=== PATIENT | female | born 1995 | race Caucasian/White ===

== ENCOUNTER → 2017-07-28 | Outpatient (CLI) | payer OTHER ==
[~2017-07-28] MED LIST: B-COCAP2 PO; CNC/36 PO; METH10TA4 PO
--- NOTE | 2017-07-28 15:05 | DIAGNOSTIC IMAGING REPORT ---
LEFT LOWER EXTREMITY VENOUS DOPPLER HISTORY: PAIN IN LOWER LEFT LEG COMPARISON STUDY: None. FINDINGS: There is normal compressibility, flow, and augmentation within the left lower extremity deep venous system. IMPRESSION: No DVT within the left lower extremity. Electronically signed by: Simón Pina M.D. 07/28/2017 3:04 PM Dictated Date/Time: 07/28/2017 3:04 PM
== END | disposition home or self-care (01) ==
LOC: C.ULTRBC 14:34
PROVIDERS: ATTEND Family Medicine
DX: M79.605 Pain in left leg (principal)

== ENCOUNTER 2017-09-11 20:20 | Emergency (ER) | payer OTHER ==
[~2017-09-11] VITALS: Ht 170.2 cm; Wt 87.0 kg
[~2017-09-11 20:20] MED LIST changes: -METH10TA4 PO
[2017-09-11 20:22] VITALS: TEMP 36.7; Ht 170.2 cm; Wt 87.0 kg
[2017-09-11] MEDS ORDERED: KETOROLAC TROMETHAMINE 30 MG/ML VIAL IV STA (20:28)
[2017-09-11] MEDS ORDERED: SODIUM CHLORIDE 0.9% 1000ML 1,000 ML IV STA (20:28)
[2017-09-11] MEDS ORDERED: HYDROmorphone INJ 1 MG/ML SYR IV STA ×2 (20:28→21:07)
[2017-09-11] MEDS ORDERED: ONDANSETRON INJ 2 MG/ML 2 ML VIAL IV STA (20:28)
[2017-09-11] MEDS ORDERED: LORAZEPAM 1 MG TAB SL STA (20:31)
--- NOTE | 2017-09-11 20:37 | EMERGENCY ROOM VISIT NOTE ---
History Report prepared by Kaity: Lj Alegre Under the Supervision of: Dr. Aaron Mock M.D. First contact with patient: 20:27 Chief Complaint: KIDNEY STONE Stated Complaint: POSSIBLE KIDNEY STONE History of Present Illness The patient is a 22 year old female who presents to the Emergency Room with complaints of severe and worsening flank pain that she first experienced on Friday, 3 days ago. The patient describes the pain as a "spasm." She did visit with her PCP who said it was a muscle strain and placed her on Prednisone. Source of History: patient Onset: 3 days COP Position: back (flank) Symptom Intensity: severe Quality: other (Spasm) Timing: worsening Review of Systems See HPI for pertinent positives & negatives. A total of 10 systems reviewed and were otherwise negative. Past Medical & Surgical Medical Problems: (1) Autoimmune disease Family History FH: pulmonary embolism Social History Smoking Status: Never Smoker Marital Status: single Housing Status: lives with roommate Occupation Status: [employer] student Current/Historical Medications Scheduled Levofloxacin (Levaquin), 750 MG PO DAILY Lidocaine (Lidocaine), 5 % TD DAILY Methylphenidate (Ritalin), 10 MG PO DAILY Methylphenidate Hcl (Concerta), 36 MG PO DAILY Multivitamin (Multivitamin), 1 TAB PO DAILY Scheduled PRN Oxycodone/Acetaminophen 5MG/325MG (Percocet 5MG/325MG), 1-2 TAB PO Q4H PRN for Pain Allergies Coded Allergies: No Known Allergies (Unverified , 09/11/17) Physical Exam Vital Signs Date Time Temp Pulse Resp B/P (MAP) Pulse Ox O2 Delivery O2 Flow Rate FiO2 09/11/17 23:03 105 20 133/75 98 Room Air 09/11/17 21:47 93 09/11/17 21:40 96 18 127/77 98 Room Air 09/11/17 20:22 36.7 107 18 133/72 95 Room Air Physical Exam GENERAL: Awake, alert, crying on exam, in no acute distress HENT: Normocephalic, atraumatic. Oropharynx unremarkable. EYES: Normal conjunctiva. Sclera non-icteric. NECK: Supple. No nuchal rigidity. FROM. No JVD. RESPIRATORY: Clear to auscultation. CARDIAC: Regular rate, normal rhythm. Extremities warm and well perfused. Pulses equal. ABDOMEN: Soft, non-distended. No tenderness to palpation. No rebound or guarding. No masses. RECTAL: Deferred. MUSCULOSKELETAL: Chest examination reveals no tenderness. The back is symmetrical on inspection without obvious abnormality. There is no CVA tenderness to palpation. No joint edema. There is extreme pain in the left lower back. LOWER EXTREMITIES: Calves are equal size bilaterally and non-tender. No edema. No discoloration. NEURO: Normal sensorium. No sensory or motor deficits noted. SKIN: No rash or jaundice noted. Medical Decision & Procedures ER Provider Diagnostic Interpretation: ABD/PELVIS WITHOUT FOR STONE HISTORY: 22 years-old Female Pt c/o left sided flank pain acute left-sided flank pain COMPARISON: CTA chest 08/27/2015 TECHNIQUE: Multiple axial CT images of the abdomen and pelvis were obtained without the use of IV contrast. A dose lowering technique was used consistent with the principals of KEVIN. FINDINGS: Trace left pleural effusion with subsegmental groundglass and consolidative left basilar opacities. There is no pneumatosis or pneumoperitoneum identified. The imaged inferior cardiac chambers are unremarkable. Evaluation of the solid abdominal organs is limited without the use of IV contrast. Within the limitations of the study, the liver, spleen, pancreas, gallbladder and adrenal glands are within normal limits. Increased attenuation of the medullary pyramids noted bilaterally without renal calculi or obstructive uropathy. The ureters and urinary bladder are within normal limits. Uterus and adnexa are within normal limits. There is trace free pelvic fluid. Phleboliths are noted within the pelvis. Aorta is normal in course and caliber. No bulky adenopathy. No bowel obstruction or focal bowel wall thickening. Nondistention involves the majority of the descending colon. The appendix appears normal. Nonspecific mildly prominent lymph nodes of the right lower quadrant mesentery. Soft tissues are unremarkable. The bones appear intact. Intervertebral disc space narrowing at L5-S1 with Schmorl's node. IMPRESSION: 1. Trace left pleural effusion with subsegmental groundglass and consolidative opacities of the left lung base suspicious for pneumonitis. 2. No renal calculi or obstructive uropathy. 3. Increased attenuation of the bilateral medullary pyramids suggests hemoconcentration with dehydration or medullary nephrocalcinosis. 4. Normal appendix. The above report was generated using voice recognition software. It may contain grammatical, syntax or spelling errors. Electronically signed by: Hector Nunez M.D. 09/11/2017 10:02 PM Dictated Date/Time: 09/11/2017 9:53 PM (CHEST FOR PE) ANGIO WITH CT DOSE: 236.24 mGy.cm HISTORY: 22 years-old Female with presents with acute atypical chest pain. TECHNIQUE: Multiple CTA images of the chest were obtained after the intravenous administration of 115 ml Optiray 320. Coronal and sagittal MIPS were obtained from the axial data set and were submitted for review. A dose lowering technique was utilized adhering to the principles of ALARA. COMPARISON: CTA of the chest 08/27/2015, CT abdomen and pelvis 09/11/2017 FINDINGS: CTA: Heart is normal in size without pericardial effusion. Thoracic aorta is normal in both course and caliber without aneurysm or dissection. The imaged great vessels appear to be patent. The pulmonary arterial tree is opacified to the lobar segments with the segmental and subsegmental branches not well opacified secondary to contrast bolus timing. No central pulmonary identified. The imaged IVC is unremarkable. CT CHEST: Thyroid is homogeneous. No pathologic adenopathy of the chest. Residual thymic tissue anterior mediastinum. Breast tissue appears unremarkable. Trace left pleural effusion redemonstrated. No right pleural effusion or pneumothorax. Subsegmental groundglass and consolidative opacities are noted within the left lung base. The right lung is clear. The central airways are patent. No acute abnormality of the imaged upper abdomen. Soft tissues are within normal limits. The bones appear intact. IMPRESSION: 1. Limited evaluation of the pulmonary arterial tree secondary to contrast bolus timing. No central pulmonary embolus identified. 2. Trace left pleural effusion with subsegmental consolidative and groundglass opacities of the left lung base suggesting pneumonitis. The above report was generated using voice recognition software. It may contain grammatical, syntax or spelling errors. Electronically signed by: Hector Nunez M.D. 09/11/2017 10:46 PM Dictated Date/Time: 09/11/2017 10:40 PM The status of this report is Signed. Draft = Not yet reviewed or approved by Radiologist. Signed = Reviewed and approved by Radiologist. <AttendingPhy></AttendingPhy> <FamilyPhy>Paola Rendon M.D.</FamilyPhy> < PrimaryPhy>Paola Rendon M.D.</PrimaryPhy> <UnitNumber>[id number]</ UnitNumber> <VisitNumber>[id number]</VisitNumber> <PatientName>MADELAINE DUQUE</ PatientName> <DateOfBirth>1995</DateOfBirth> <Location>[facility]</Location> < ServiceDate>09/11/17</ServiceDate> <MNE>ESINDI</MNE> <OrderingPhy>Aaron Mock MD</OrderingPhy Laboratory Results 09/11/17 20:45 Red Blood Count 4.03, Mean Corpuscular Volume 88.3, Mean Corpuscular Hemoglobin 31.3, Mean Corpuscular Hemoglobin Concent 35.4, Mean Platelet Volume 9.9, Neutrophils (%) (Auto) 85.0, Lymphocytes (%) (Auto) 9.0, Monocytes (%) (Auto) 5.8, Eosinophils (%) (Auto) 0.0, Basophils (%) (Auto) 0.0, Neutrophils # (Auto) 8.34, Lymphocytes # (Auto) 0.88, Monocytes # (Auto) 0.57, Eosinophils # (Auto) 0.00, Basophils # (Auto) 0.00 09/11/17 20:45 Test 09/11/17 20:45 09/11/17 23:00 White Blood Count 9.81 K/uL (4.8-10.8) Red Blood Count 4.03 M/uL (4.2-5.4) Hemoglobin 12.6 g/dL (12.0-16.0) Hematocrit 35.6 % (37-47) Mean Corpuscular Volume 88.3 fL (80-100) Mean Corpuscular Hemoglobin 31.3 pg (25-34) Mean Corpuscular Hemoglobin Concent 35.4 g/dl (32-36) Platelet Count 220 K/uL (130-400) Mean Platelet Volume 9.9 fL (7.4-10.4) Neutrophils (%) (Auto) 85.0 % Lymphocytes (%) (Auto) 9.0 % Monocytes (%) (Auto) 5.8 % Eosinophils (%) (Auto) 0.0 % Basophils (%) (Auto) 0.0 % Neutrophils # (Auto) 8.34 K/uL (1.4-6.5) Lymphocytes # (Auto) 0.88 K/uL (1.2-3.4) Monocytes # (Auto) 0.57 K/uL (0.11-0.59) Eosinophils # (Auto) 0.00 K/uL (0-0.5) Basophils # (Auto) 0.00 K/uL (0-0.2) RDW Standard Deviation 42.3 fL (36.4-46.3) RDW Coefficient of Variation 13.2 % (11.5-14.5) Immature Granulocyte % (Auto) 0.2 % Immature Granulocyte # (Auto) 0.02 K/uL (0.00-0.02) Anion Gap 8.0 mmol/L (3-11) Est Creatinine Clear Calc Drug Dose 153.8 ml/min Estimated GFR () 146.1 Estimated GFR (Non- 126.0 BUN/Creatinine Ratio 21.1 (10-20) Calcium Level 8.6 mg/dl (8.5-10.1) Total Bilirubin 0.5 mg/dl (0.2-1) Direct Bilirubin 0.2 mg/dl (0-0.2) Aspartate Amino Transf (AST/SGOT) 9 U/L (15-37) Alanine Aminotransferase (ALT/SGPT) 21 U/L (12-78) Alkaline Phosphatase 65 U/L (45-117) Total Protein 8.0 gm/dl (6.4-8.2) Albumin 3.7 gm/dl (3.4-5.0) Lipase 55 U/L (73-393) Labs reviewed by ED physician. Medications Administered Medications (Trade) Dose Ordered Sig/Ragini Route Start Time Stop Time Status Last Admin Dose Admin Hydromorphone HCl (Dilaudid Inj) 1 mg NOW STAT IV 09/11/17 20:28 09/11/17 20:30 DC 09/11/17 20:49 1 MG Ketorolac Tromethamine (Toradol Inj) 30 mg NOW STAT IV 09/11/17 20:28 09/11/17 20:30 DC 09/11/17 20:50 30 MG Ondansetron HCl (Zofran Inj) 4 mg NOW STAT IV 09/11/17 20:28 09/11/17 20:30 DC 09/11/17 20:49 4 MG Sodium Chloride 1,000 ml @ 999 mls/hr Q1H1M STAT IV 09/11/17 20:28 09/11/17 21:28 DC 09/11/17 20:49 999 MLS/HR Lorazepam (Ativan Tab) 1 mg NOW STAT SL 09/11/17 20:31 09/11/17 20:32 DC 09/11/17 20:40 1 MG Hydromorphone HCl (Dilaudid Inj) 1 mg NOW STAT IV 09/11/17 21:07 09/11/17 21:08 DC 09/11/17 21:27 1 MG Metoclopramide HCl (Reglan Inj) 10 mg NOW STAT IV 09/11/17 22:04 09/11/17 22:05 DC 09/11/17 22:14 10 MG ED Course 2025: Past medical records reviewed. The patient was evaluated in room C2B. A complete history and physical examination was performed. 2027: Ordered Sodium Chloride 1000 mL @ 999 mL/hr IV, Zofran 4 mg IV, Toradol 30 mg IV, Dilaudid 1 mg IV. 2030: Ordered Ativan 1 mg SL. 2106: Ordered Dilaudid 1 mg IV. 2203: Ordered Reglan 10 mg IV. Medical Decision Differential diagnosis: Etiologies such as musculoskeletal, disc herniation, fracture, aortic disease, metastatic disease, cord compression, discitis, infection, renal colic, gastrointestinal, acute exacerbation of chronic back pain, sciatica, cauda equina, as well as others were entertained. This is a 22-year-old that is complaining of left-sided flank pain. The patient was seen by [facility] and felt to have muscle skeletal pain. She had been started on a prednisone taper. Upon arrival to the emergency department patient is acutely uncomfortable and rocking back and forth in pain. Due to her presentation she was sent for a CAT scan of the abdomen and pelvis overconcern of a stone. This did not show any evidence of stone however the patient does have a left pleural effusion. For this reason she was sent for a CAT scan of the chest. This did not show any evidence of a PE. I will place the patient on Levaquin for pneumonitis. She was given Dilaudid for the pain 2 as well as Toradol. Recommended taking ibuprofen as well as a Lidoderm patch and Percocet for the pain. Patient will return if her symptoms worsen. Patient was in agreement with the treatment plan. Medication Reconcilliation Current Medication List: was personally reviewed by me Blood Pressure Screening Patient's blood pressure: Normal blood pressure Impression Primary Impression: Left flank pain Scribe Attestation The scribe's documentation has been prepared under my direction and personally reviewed by me in its entirety. I confirm that the note above accurately reflects all work, treatment, procedures, and medical decision making performed by me. Departure Information Dispostion Home / Self-Care Prescriptions Levofloxacin (Levaquin) 750 Mg Tab 750 MG PO DAILY for 4 Days, #4 TAB Prov: Aaron Mock MD 09/11/17 Oxycodone/Acetaminophen 5MG/325MG (PERCOCET 5MG/325MG) Tab 1-2 TAB PO Q4H Y for Pain, #14 TAB Prov: Aaron Mock MD 09/11/17 Lidocaine (Lidocaine) 1 Patch Tdsy 5 % TD DAILY, #30 PATCH Prov: Aaron Mock MD 09/11/17 Referrals No Doctor, Assigned (PCP) Patient Instructions My [facility]
[2017-09-11 21:02] LABS: HEMATOCRIT 35.6 % (37-47); HEMOGLOBIN 12.6 g/dL (12.0-16.0); IG# 0.02 K/uL (0.00-0.02); LYMPH ABS # 0.88 K/uL (1.2-3.4); MEAN CELL VOLUME 88.3 fL (80-100); MEAN CORPUSCULAR HEMOGLOBIN 31.3 pg (25-34); MEAN CORPUSCULAR HGB CONC 35.4 g/dl (32-36); MEAN PLATELET VOLUME 9.9 fL (7.4-10.4); MONO % 5.8 %; MONO ABS # 0.57 K/uL (0.11-0.59); NEUT ABS # 8.34 K/uL (1.4-6.5); PLATELET COUNT 220 K/uL (130-400); RED CELL DISTRIBUTION WIDTH CV 13.2 % (11.5-14.5); RED CELL DISTRIBUTION WIDTH SD 42.3 fL (36.4-46.3); WHITE BLOOD COUNT 9.81 K/uL (4.8-10.8)
[2017-09-11 21:25] LABS: ALBUMIN 3.7 gm/dl (3.4-5.0); CALCIUM 8.6 mg/dl (8.5-10.1); CREATININE 0.65 mg/dl (0.60-1.20); POTASSIUM 3.5 mmol/L (3.5-5.1)
[2017-09-11] MEDS ORDERED: METOCLOPRAMIDE HCL INJ 5 MG/ML 2 ML VIAL IV STA (22:04)
--- NOTE | 2017-09-11 22:04 | DIAGNOSTIC IMAGING REPORT ---
ABD/PELVIS WITHOUT FOR STONE HISTORY: 22 years-old Female Pt c/o left sided flank pain acute left-sided flank pain COMPARISON: CTA chest 08/27/2015 TECHNIQUE: Multiple axial CT images of the abdomen and pelvis were obtained without the use of IV contrast. A dose lowering technique was used consistent with the principals of KEVIN. FINDINGS: Trace left pleural effusion with subsegmental groundglass and consolidative left basilar opacities. There is no pneumatosis or pneumoperitoneum identified. The imaged inferior cardiac chambers are unremarkable. Evaluation of the solid abdominal organs is limited without the use of IV contrast. Within the limitations of the study, the liver, spleen, pancreas, gallbladder and adrenal glands are within normal limits. Increased attenuation of the medullary pyramids noted bilaterally without renal calculi or obstructive uropathy. The ureters and urinary bladder are within normal limits. Uterus and adnexa are within normal limits. There is trace free pelvic fluid. Phleboliths are noted within the pelvis. Aorta is normal in course and caliber. No bulky adenopathy. No bowel obstruction or focal bowel wall thickening. Nondistention involves the majority of the descending colon. The appendix appears normal. Nonspecific mildly prominent lymph nodes of the right lower quadrant mesentery. Soft tissues are unremarkable. The bones appear intact. Intervertebral disc space narrowing at L5-S1 with Schmorl's node. IMPRESSION: 1. Trace left pleural effusion with subsegmental groundglass and consolidative opacities of the left lung base suspicious for pneumonitis. 2. No renal calculi or obstructive uropathy. 3. Increased attenuation of the bilateral medullary pyramids suggests hemoconcentration with dehydration or medullary nephrocalcinosis. 4. Normal appendix. The above report was generated using voice recognition software. It may contain grammatical, syntax or spelling errors. Electronically signed by: Hector Nunez M.D. 09/11/2017 10:02 PM Dictated Date/Time: 09/11/2017 9:53 PM
[2017-09-11] MEDS ORDERED: OPTIRAY 320 IV PRN (22:15)
--- NOTE | 2017-09-11 22:47 | DIAGNOSTIC IMAGING REPORT ---
(CHEST FOR PE) ANGIO WITH CT DOSE: 236.24 mGy.cm HISTORY: 22 years-old Female with presents with acute atypical chest pain. TECHNIQUE: Multiple CTA images of the chest were obtained after the intravenous administration of 115 ml Optiray 320. Coronal and sagittal MIPS were obtained from the axial data set and were submitted for review. A dose lowering technique was utilized adhering to the principles of ALARA. COMPARISON: CTA of the chest 08/27/2015, CT abdomen and pelvis 09/11/2017 FINDINGS: CTA: Heart is normal in size without pericardial effusion. Thoracic aorta is normal in both course and caliber without aneurysm or dissection. The imaged great vessels appear to be patent. The pulmonary arterial tree is opacified to the lobar segments with the segmental and subsegmental branches not well opacified secondary to contrast bolus timing. No central pulmonary identified. The imaged IVC is unremarkable. CT CHEST: Thyroid is homogeneous. No pathologic adenopathy of the chest. Residual thymic tissue anterior mediastinum. Breast tissue appears unremarkable. Trace left pleural effusion redemonstrated. No right pleural effusion or pneumothorax. Subsegmental groundglass and consolidative opacities are noted within the left lung base. The right lung is clear. The central airways are patent. No acute abnormality of the imaged upper abdomen. Soft tissues are within normal limits. The bones appear intact. IMPRESSION: 1. Limited evaluation of the pulmonary arterial tree secondary to contrast bolus timing. No central pulmonary embolus identified. 2. Trace left pleural effusion with subsegmental consolidative and groundglass opacities of the left lung base suggesting pneumonitis. The above report was generated using voice recognition software. It may contain grammatical, syntax or spelling errors. Electronically signed by: Hector Nunez M.D. 09/11/2017 10:46 PM Dictated Date/Time: 09/11/2017 10:40 PM
[2017-09-11] MEDS ORDERED: LEVOFLOXACIN 250 MG TAB PO STA (22:53)
[2017-09-11] MEDS ORDERED: LIDODERM (LIDOCAINE) PATCH 5% TD STA (22:55)
[2017-09-11] MEDS ORDERED: LDDP5 TD (22:57)
[2017-09-11] MEDS ORDERED: OXYC-57 PO (22:58)
[2017-09-11] MEDS ORDERED: LEVO1TAB35 PO (22:58)
[2017-09-11] MEDS ORDERED: PERCOCET HOME PACK PO ONE (23:00)
[2017-09-11] MEDS ORDERED: ONDANSETRON HOME PACK 4MG OD TAB PO ONE (23:00)
[2017-09-11 23:03] VITALS: BP 133/75; PULSE 105; O2SAT 98
[2017-09-12] MEDS ORDERED: PRED20TA PO (12:39)
[2017-09-12] MEDS ORDERED: ONDA-170 PO (12:39)
[2017-09-12] MEDS ORDERED: AMOX875T PO (16:14)
[2017-09-12] MEDS ORDERED: IBUP-1451 PO (16:14)
[2017-09-12] MEDS ORDERED: METH10TA4 PO (20:43)
[2017-09-12] MEDS ORDERED: MULT-506 PO (21:29)
[2017-09-12] MEDS ORDERED: CNC/36 PO (21:29)
== END 2017-09-11 23:21 | disposition home or self-care (01) ==
LOC: C.EDB 20:21 → C.EDC 23:21
DX: R10.9 Unspecified abdominal pain (principal); M54.5 Low back pain; J18.9 Pneumonia, unspecified organism; Z82.49 Family history of ischemic heart disease and other diseases of the circulatory system

== ENCOUNTER 2017-09-12 12:06 | Emergency (ER) | payer OTHER ==
[~2017-09-12] VITALS: Ht 170.2 cm; Wt 88.9 kg
[~2017-09-12 12:06] MED LIST changes: -B-COCAP2 PO; -CNC/36 PO; +LDDP5 TD; +LEVO1TAB35 PO; +OXYC-57 PO
[2017-09-12 12:24] VITALS: TEMP 36.5; Ht 170.2 cm; Wt 88.9 kg
[2017-09-12] MEDS ORDERED: ONDA-170 PO (12:39)
[2017-09-12] MEDS ORDERED: PRED20TA PO (12:39)
[2017-09-12] MEDS ORDERED: KETOROLAC TROMETHAMINE 30 MG/ML VIAL IV STA ×2 (12:51→16:56)
[2017-09-12] MEDS ORDERED: SODIUM CHLORIDE 0.9% 1000ML 2,000 ML IV STA (12:51)
[2017-09-12] MEDS ORDERED: LIDODERM (LIDOCAINE) PATCH 5% TD STA ×2 (12:51→16:18)
[2017-09-12] MEDS ORDERED: ALBUT/IPRATROP 3MG/0.5MG NEB 3 ML VIAL INH STA (12:55)
--- NOTE | 2017-09-12 12:58 | EMERGENCY ROOM VISIT NOTE ---
History Report prepared by Kaity: Jay Arias Under the Supervision of: Dr. Luigi Caballero M.D. First contact with patient: 12:31 Chief Complaint: RIB PAIN Stated Complaint: L SIDE FLANK PAIN, 8OUT OF 10 History of Present Illness The patient is a 22 year old female who presents to the Emergency Room with complaints of persistent left-sided abdominal pain for six days. She currently rates her pain an 8/10 in severity. She has been having coughing fits. She notes chest pain. She was in excruciating pain last night. She notes that lying flat worsens her pain. She went to her PCP four days ago. She was prescribed Prednisone. She was prescribed Levofloxacin for PNA and one Percocet, though no relief. She has also had three Advil at 1030 this morning with no relief. She denies any fevers or chills. She has a history of PNA two years ago. She reports nausea, though she has been taking Zofran and denies any current nausea. She had a CT yesterday that showed fluid in her left lung. There were not any PEs or kidney stones. She denies eating or drinking any food. She denies any recent travels outside of the country. She states that she is anxious. Source of History: patient Onset: six days Position: abdomen (left-sided) Symptom Intensity: 8/10 Timing: other (persistent) Modifying Factors (Worsening): other (lying flat) Associated Symptoms: + nausea, No fevers, No chills Note: She notes anxiety. Review of Systems See HPI for pertinent positives and negatives. A total of ten systems were reviewed and were otherwise negative. Past Medical & Surgical Medical Problems: (1) Autoimmune disease Family History FH: pulmonary embolism Social History Smoking Status: Never Smoker Smokeless Tobacco Use: No Alcohol Use: occasionally Marital Status: single Housing Status: lives with roommate Occupation Status: [employer] student Current/Historical Medications Scheduled Amoxicillin & Pot Clavulanate (Augmentin 875-125 mg), 875 MG PO BID Levofloxacin (Levaquin), 750 MG PO DAILY Lidocaine (Lidocaine), 5 % TD DAILY Methylphenidate (Ritalin), 10 MG PO DAILY Methylphenidate Hcl (Concerta), 36 MG PO DAILY Multivitamin (Multivitamin), 1 TAB PO DAILY Prednisone (Prednisone), 20 MG PO DAILY Scheduled PRN Ibuprofen Tab (Motrin), 800 MG PO Q6H PRN for Pain Ondansetron Hcl (Zofran), Unknown Dose PO for Nausea Oxycodone/Acetaminophen 5MG/325MG (Percocet 5MG/325MG), 1-2 TAB PO Q4H PRN for Pain Allergies Coded Allergies: No Known Allergies (Unverified , 09/11/17) Physical Exam Vital Signs Date Time Temp Pulse Resp B/P (MAP) Pulse Ox O2 Delivery O2 Flow Rate FiO2 09/12/17 20:55 96 20 127/82 95 Room Air 09/12/17 18:12 96 16 140/82 95 Room Air 09/12/17 17:48 103 09/12/17 16:52 101 20 127/68 95 Room Air 09/12/17 15:47 101 20 128/69 94 Room Air 09/12/17 14:00 103 18 123/71 96 Room Air 09/12/17 13:43 92 09/12/17 13:38 99 Room Air 09/12/17 12:24 36.5 72 18 114/58 99 Room Air Physical Exam GENERAL: Awake, alert, uncomfortable-appearing, in no distress HENT: Normocephalic, atraumatic. Oropharynx dry mucus membranes. EYES: Normal conjunctiva. Sclera non-icteric. NECK: Supple. No nuchal rigidity. FROM. No JVD. RESPIRATORY: Clear to auscultation. CARDIAC: Regular rate, normal rhythm. Extremities warm and well perfused. Pulses equal. ABDOMEN: Soft, non-distended. No tenderness to palpation. No rebound or guarding. No masses. RECTAL: Deferred. MUSCULOSKELETAL: Tenderness along posterior lateral to anterior left chest wall. The back is symmetrical on inspection without obvious abnormality. There is no CVA tenderness to palpation. No joint edema. LOWER EXTREMITIES: Calves are equal size bilaterally and non-tender. No edema. No discoloration. NEURO: Normal sensorium. No sensory or motor deficits noted. SKIN: No rash or jaundice noted. Medical Decision & Procedures ER Provider Diagnostic Interpretation: Radiology results as stated below per my review and radiologist interpretation: CHEST ONE VIEW PORTABLE CLINICAL HISTORY: Chest pain. Left-sided flank pain. COMPARISON STUDY: Chest CT September 11, 2017. FINDINGS: Lung volumes are diminished. A small to moderate left pleural fusion has increased in size since exam performed September 11, 2017. There is increasing left basilar opacity. Linear right lower lung opacity favors atelectasis. There is pulmonary vascular congestion without overt edema. IMPRESSION: 1. Increase in size of a small to moderate left pleural effusion with increasing left basilar opacity which may reflect pneumonia or atelectasis. 2. Diminished lung volumes with right basilar atelectasis. 3. Pulmonary vascular congestion without evidence of pulmonary edema. Electronically signed by: Jeremias Tracy M.D. 09/12/2017 1:48 PM Dictated Date/Time: 09/12/2017 1:45 PM Laboratory Results 09/12/17 13:17 Red Blood Count 3.78, Mean Corpuscular Volume 89.2, Mean Corpuscular Hemoglobin 31.2, Mean Corpuscular Hemoglobin Concent 35.0, Mean Platelet Volume 9.8, Neutrophils (%) (Auto) 78.6, Lymphocytes (%) (Auto) 8.1, Monocytes (%) (Auto) 12.9, Eosinophils (%) (Auto) 0.0, Basophils (%) (Auto) 0.1, Neutrophils # (Auto ) 11.18, Lymphocytes # (Auto) 1.15, Monocytes # (Auto) 1.84, Eosinophils # (Auto ) 0.00, Basophils # (Auto) 0.01 09/12/17 13:17 Test 09/12/17 13:17 White Blood Count 14.22 K/uL (4.8-10.8) Red Blood Count 3.78 M/uL (4.2-5.4) Hemoglobin 11.8 g/dL (12.0-16.0) Hematocrit 33.7 % (37-47) Mean Corpuscular Volume 89.2 fL (80-100) Mean Corpuscular Hemoglobin 31.2 pg (25-34) Mean Corpuscular Hemoglobin Concent 35.0 g/dl (32-36) Platelet Count 188 K/uL (130-400) Mean Platelet Volume 9.8 fL (7.4-10.4) Neutrophils (%) (Auto) 78.6 % Lymphocytes (%) (Auto) 8.1 % Monocytes (%) (Auto) 12.9 % Eosinophils (%) (Auto) 0.0 % Basophils (%) (Auto) 0.1 % Neutrophils # (Auto) 11.18 K/uL (1.4-6.5) Lymphocytes # (Auto) 1.15 K/uL (1.2-3.4) Monocytes # (Auto) 1.84 K/uL (0.11-0.59) Eosinophils # (Auto) 0.00 K/uL (0-0.5) Basophils # (Auto) 0.01 K/uL (0-0.2) RDW Standard Deviation 43.9 fL (36.4-46.3) RDW Coefficient of Variation 13.6 % (11.5-14.5) Immature Granulocyte % (Auto) 0.3 % Immature Granulocyte # (Auto) 0.04 K/uL (0.00-0.02) Anion Gap 8.0 mmol/L (3-11) Est Creatinine Clear Calc Drug Dose 163.0 ml/min Estimated GFR () 148.3 Estimated GFR (Non- 128.0 BUN/Creatinine Ratio 21.1 (10-20) Calcium Level 8.4 mg/dl (8.5-10.1) Total Bilirubin 1.2 mg/dl (0.2-1) Direct Bilirubin 0.3 mg/dl (0-0.2) Aspartate Amino Transf (AST/SGOT) 9 U/L (15-37) Alanine Aminotransferase (ALT/SGPT) 20 U/L (12-78) Alkaline Phosphatase 59 U/L (45-117) Total Protein 7.5 gm/dl (6.4-8.2) Albumin 3.3 gm/dl (3.4-5.0) Lipase 40 U/L (73-393) Laboratory results reviewed by me Medications Administered Medications (Trade) Dose Ordered Sig/Ragini Route Start Time Stop Time Status Last Admin Dose Admin Sodium Chloride 2,000 ml @ 999 mls/hr Q2H1M STAT IV 09/12/17 12:51 09/12/17 14:51 DC 09/12/17 13:39 999 MLS/HR Dexamethasone Sodium Phosphate (Dexamethasone Inj Pf) 10 mg NOW ONCE IV 09/12/17 13:00 09/12/17 13:01 DC 09/12/17 13:40 10 MG Ketorolac Tromethamine (Toradol Inj) 15 mg NOW STAT IV 09/12/17 12:51 09/12/17 12:54 DC 09/12/17 13:40 15 MG Oxycodone/ Acetaminophen (Percocet 5-325mg Tab) 2 tab NOW ONCE PO 09/12/17 13:00 09/12/17 13:01 DC 09/12/17 13:41 2 TAB Lidocaine (Lidoderm Patch 5%) 1 patch NOW STAT TD 09/12/17 12:51 09/12/17 12:54 DC 09/12/17 13:40 1 PATCH Albuterol/ Ipratropium (Duoneb) 3 ml NOW STAT INH 09/12/17 12:55 09/12/17 12:56 DC 09/12/17 13:40 3 ML Ampicillin Sodium/ Sulbactam Sodium 3000 mg/Sodium Chloride 108 ml @ 200 mls/hr ONE STAT IV 09/12/17 14:53 09/12/17 15:25 DC 09/12/17 15:45 200 MLS/HR Sodium Chloride 1,000 ml @ 999 mls/hr Q1H1M STAT IV 09/12/17 15:35 09/12/17 16:35 DC 09/12/17 15:45 999 MLS/HR Oxycodone/ Acetaminophen (Percocet 5-325mg Tab) 2 tab NOW ONCE PO 09/12/17 17:00 09/12/17 17:01 DC 09/12/17 17:32 2 TAB Ketorolac Tromethamine (Toradol Inj) 15 mg NOW STAT IV 09/12/17 16:56 09/12/17 16:58 DC 09/12/17 17:31 15 MG Lorazepam (Ativan Tab) 0.5 mg NOW STAT PO 09/12/17 17:46 09/12/17 17:47 DC 09/12/17 18:13 0.5 MG Amoxicillin/ Clavulanate Potassium (Augmentin Tab) 1,750 mg STK-MED ONCE PO 09/12/17 20:46 09/12/17 20:47 DC 09/12/17 21:17 1,750 MG Albuterol (Ventolin Hfa Inhaler) 60 puffs STK-MED ONCE INH 09/12/17 20:47 09/12/17 20:48 DC 09/12/17 21:17 60 PUFFS Lidocaine (Lidoderm Patch 5%) 1 patch STK-MED ONCE .ROUTE 09/12/17 20:47 09/12/17 20:48 DC 09/12/17 21:16 1 PATCH Lidocaine (Lidoderm Patch 5%) 1 patch 2100 ONCE TD 09/12/17 21:00 09/12/17 21:01 DC 09/12/17 21:16 1 PATCH ECG Per My Interpretation Indication: abdominal pain Rate (beats per minute): 93 Rhythm: normal sinus Findings: no acute ischemic change, other (Normal axis) ED Course 1244: The patient was evaluated in room B7. A complete history and physical exam was performed. 1438: I spoke with Dr. Garzon, industrial engineer. We discussed the patient's case. He feels that this can be aspiration pneumonitis vs endometriosis. He recommends anti-inflammatory medication. He agrees to switch antibiotics to Augmentin. He will follow up with her as an outpatient. 1520: I reassessed the patient at this time. She is feeling better. She denies any history of endometriosis. She denies any recent intoxication. 1646: I reassessed the patient at this time. She is feeling better and resting comfortably. I discussed the results and treatment plan with the patient. I answered all pertaining questions that she had. She expressed understanding and verbalized agreement. The patient will be discharged home. 1727: I reassessed the patient at this time. The patient is afraid her pain will return if she leaves. The patient is tearful. 1741: I spoke with Dr. Davis, [facility] hospitalist. We discussed the patient's case. The patient will be evaluated by the [facility] for further management. Medical Decision I reviewed the patient's past medical history, medications, and the nursing notes as described above. The patient's history was concerning for abdominal pain and chest pain. Differential diagnosis: Etiologies such as appendicitis, diverticulitis, PUD, biliary pathology, UTI, pancreatitis, obstruction, mesenteric ischemia, aortic pathology, infections, inflammatory bowel disease, renal colic, cardiac ischemia, aortic dissection, pulmonary embolism, pneumonia, pneumothorax, musculoskeletal, infections, pericarditis, myocarditis, esophageal rupture, gastrointestinal, as well as others were entertained. The patient is a 22-year-old woman who presents emergency department with persistent left-sided chest pain after being seen in the emergency department yesterday with a diagnosis of pneumonia/pneumonitis on CT per hpi. Of note the patient had a CT PE study that was negative for PE as well as a CT abdomen and pelvis with no acute findings. Patient was put on levofloxacin and given prescription for Percocet and Lidoderm patch for pain control. The patient is uncomfortable but no acute distress, afebrile stable vital signs. On exam the patient has mild tenderness to the posterior lateral, lateral, anterior left chest wall. WBC 14 elevated from yesterday which was 9. Chest x-ray demonstrates some increased left-sided infiltrates and effusion. Chemistry otherwise consistent with dehydration mildly elevated T bili. Patient was treated with Toradol, dexamethasone, Lidoderm patch, and Percocet with good effect. This was discussed with Dr. Garzon, pulmonology, reviewed the images from today and yesterday. Given the findings could be consistent with aspiration as well as endometriosis. However patient denies any history of symptoms consistent with endometriosis and is 2 weeks from her menstrual cycle. Patient additionally denies any significant intoxication over spring and denies any history of passing out. Nevertheless, the patient's elevated WBC we will change the patient's antibiotic to Augmentin to cover for anaerobes. Otherwise, we agree that given the patient is not hypoxic or tachypneic it is reasonable to discharge the patient with close outpatient follow-up. The patient was given IV dose of Unasyn as her first dose. Shortly prior to discharge patient was reporting a slight return of her pain and so was requesting a dose of pain medication before discharge. Subsequently the patient became tearful worried that her pain would come back as severe as previous and so she does not feel like she can go home. I attempted to reassure the patient that we are optimizing her pain management which includes optimal anti-inflammatory medication and this should help her symptoms going forward. However the patient still was tearful and anxious and was requesting admission. I discussed the case with Dr. Davis, [facility] hospitalist and she will evaluate the patient for possible admission. If patient reconsiders and is agreeable to outpatient plan will d/c per discharge instructions. Medication Reconcilliation Current Medication List: was personally reviewed by me Blood Pressure Screening Patient's blood pressure: Normal blood pressure Consults Time Called: [phone] Consulting Physician: Dr. Garzon, industrial engineer Returned Call: [phone] Garzon, industrial engineer. We discussed the patient's case. He feels that this can be aspiration pneumonitis vs endometriosis. He recommends anti-inflammatory medication. He agrees to switch antibiotics to Augmentin. He will follow up with her as an outpatient. Additional Consults: Time Called: [phone] Consulted Physician: AMINATA Medina hospitalist Returned Call: [phone] Additional Comments: I spoke with AMINATA Medina hospitalist. We discussed the patient's case. The patient will be evaluated by the [facility] for further management. Impression Primary Impression: Pneumonia Additional Impression: Pneumonitis Scribe Attestation The scribe's documentation has been prepared under my direction and personally reviewed by me in its entirety. I confirm that the note above accurately reflects all work, treatment, procedures, and medical decision making performed by me. Departure Information Dispostion Being Evaluated By Hospitalist Prescriptions Ibuprofen Tab (MOTRIN) 800 Mg Tab 800 MG PO Q6H Y for Pain for 30 Days, #120 TABS Prov: Luigi Caballero M.D. 09/12/17 Amoxicillin & Pot Clavulanate (Augmentin 875-125 mg) 1 Tab Tab 875 MG PO BID for 10 Days, #20 TABS Prov: Luigi Caballero M.D. 09/12/17 Referrals Paola Rendon M.D. (PCP) Rigoberto Garzon MD Forms HOME CARE DOCUMENTATION FORM, IMPORTANT VISIT INFORMATION, WORK / SCHOOL INSTRUCTIONS Patient Instructions ED Pneumonia Adult, My [facility] Additional Instructions Please follow up with S on Friday as scheduled as well as with the pulmonology clinic, Dr. Garzon, for re-evaluation. You have pneumonia and pneumonitis. Otherwise, your exam, EKG, chest xray, and lab results did not show signs of an emergent condition at this time. Discontinue your current antibiotic and begin Augmentin as prescribed. Acetaminophen or ibuprofen for pain and fevers as needed. Percocet as previously prescribed for breakthrough pain. Lidoderm patch for additional pain relief. Albuterol 2 puffs every 4 hours as needed for cough. Drink plenty of fluids to ensure hydration. Return to the emergency department for worsening symptoms as described in the accompanying instructions. Problem Qualifiers
[2017-09-12] MEDS ORDERED: DEXAMETHASONE **PF** INJ 10 MG/ML VIAL IV ONE (13:00)
[2017-09-12] MEDS ORDERED: OXYCODONE/ACETAMINOPHEN 5-325 TAB PO ONE ×2 (13:00→17:00)
[2017-09-12 13:26] LABS: BASO % 0.1 %; BASO ABS # 0.01 K/uL (0-0.2); HEMATOCRIT 33.7 % (37-47); HEMOGLOBIN 11.8 g/dL (12.0-16.0); IG# 0.04 K/uL (0.00-0.02); LYMPH % 8.1 %; LYMPH ABS # 1.15 K/uL (1.2-3.4); MEAN CELL VOLUME 89.2 fL (80-100); MEAN CORPUSCULAR HEMOGLOBIN 31.2 pg (25-34); MEAN PLATELET VOLUME 9.8 fL (7.4-10.4); MONO % 12.9 %; MONO ABS # 1.84 K/uL (0.11-0.59); NEUT % 78.6 %; NEUT ABS # 11.18 K/uL (1.4-6.5); PLATELET COUNT 188 K/uL (130-400); RED CELL DISTRIBUTION WIDTH CV 13.6 % (11.5-14.5); RED CELL DISTRIBUTION WIDTH SD 43.9 fL (36.4-46.3); WHITE BLOOD COUNT 14.22 K/uL (4.8-10.8)
[2017-09-12 13:38] VITALS: O2SAT 99
[2017-09-12 13:50] LABS: ALBUMIN 3.3 gm/dl (3.4-5.0); CALCIUM 8.4 mg/dl (8.5-10.1); CREATININE 0.62 mg/dl (0.60-1.20); POTASSIUM 3.2 mmol/L (3.5-5.1); TOTAL PROTEIN 7.5 gm/dl (6.4-8.2)
--- NOTE | 2017-09-12 13:50 | DIAGNOSTIC IMAGING REPORT ---
CHEST ONE VIEW PORTABLE CLINICAL HISTORY: Chest pain. Left-sided flank pain. COMPARISON STUDY: Chest CT September 11, 2017. FINDINGS: Lung volumes are diminished. A small to moderate left pleural fusion has increased in size since exam performed September 11, 2017. There is increasing left basilar opacity. Linear right lower lung opacity favors atelectasis. There is pulmonary vascular congestion without overt edema. IMPRESSION: 1. Increase in size of a small to moderate left pleural effusion with increasing left basilar opacity which may reflect pneumonia or atelectasis. 2. Diminished lung volumes with right basilar atelectasis. 3. Pulmonary vascular congestion without evidence of pulmonary edema. Electronically signed by: Jeremias Tracy M.D. 09/12/2017 1:48 PM Dictated Date/Time: 09/12/2017 1:45 PM
[2017-09-12] MEDS ORDERED: AMPICILLIN/SULBACTAM SOD INJ 3,000 MG in SODIUM CHLORIDE 0.9% 100ML 100 ML IV STA (14:53)
[2017-09-12] MEDS ORDERED: SODIUM CHLORIDE 0.9% 1000ML 1,000 ML IV STA (15:35)
[2017-09-12] MEDS ORDERED: IBUP-1451 PO (16:14)
[2017-09-12] MEDS ORDERED: AMOX875T PO (16:14)
[2017-09-12] MEDS ORDERED: AMOXICILLIN/CLAVULANATE TAB 875 MG TAB PO STA (16:18)
[2017-09-12] MEDS ORDERED: ALBUTEROL HFA 8 GM INHALER INH ONE ×2 (16:30→20:47)
[2017-09-12] MEDS ORDERED: LORAZEPAM 0.5 MG TAB PO STA (17:46)
--- NOTE | 2017-09-12 20:28 | Medical Consult ---
Consultation Date of Consultation: Sep 12, 2017. Attending Physician: History of Present Illness 22 y/o F - no known medical history. Presented with cough and left/mid back pain 09/12. She has a family history of PEs and was therefore sent for a CT chest. This revealed a LLL PNM and pneumonitis. Leukocytosis is present on labs. The was D/Cd from the ER and returned one day later due to persistent pain. She is afebrile at the time of medical evaluation. Imaging and the presence of pneumonitis may suggest aspiration although she has no history of such. Past Medical/Surgical History Medical Problems: (1) Bilateral pneumonia Status: Acute (2) Left flank pain Status: Acute (3) Pneumonia Status: Acute (4) Pneumonitis Status: Acute Family History FH: pulmonary embolism Both parents are The pt's mother owing to a PE at age 49. Her father at age 28. He was involved in a motorcycle accident and apparently developed endocarditis following. Social History She drinks occasionally and has never smoked. 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 Smoking Status: Never Smoker Smokeless Tobacco Use: No Marital Status: single Housing Status: lives with roommate Occupation Status: [employer] student Allergies Coded Allergies: No Known Allergies (Unverified , 09/11/17) Review of Systems Constitutional: + fever (May have had a fever at home) Eyes: No worsening of vision ENT: No hearing loss, No unusual epistaxis, No nasal symptoms Respiratory: + cough, + sputum Cardiovascular: No chest pain, No orthopnea, No PND Abdomen: No pain, No nausea, No vomiting Musculoskeletal: + problem reported (L back pain - at times severe) Genitourinary - Female: No dysuria, No urinary frequency, No urinary urgency Neurologic: No memory loss, No paralysis Psychiatric: No depression symptoms Endocrine: No fatigue Hematologic / Lymphatic: No abnormal bleeding/bruising Integumentary: No rash Allergic / Immunologic: No environmental allergies Physical Exam Date Time Temp Pulse Resp B/P (MAP) Pulse Ox O2 Delivery O2 Flow Rate FiO2 09/12/17 18:12 96 16 140/82 95 Room Air 09/12/17 17:48 103 09/12/17 16:52 101 20 127/68 95 Room Air 09/12/17 15:47 101 20 128/69 94 Room Air 09/12/17 14:00 103 18 123/71 96 Room Air 09/12/17 13:43 92 09/12/17 13:38 99 Room Air 09/12/17 12:24 36.5 72 18 114/58 99 Room Air General Appearance: WD/WN, no apparent distress Head: normocephalic Eyes: normal inspection ENT: normal ENT inspection, pharynx normal Neck: supple, no JVD Respiratory/Chest: chest non-tender, lungs clear, normal breath sounds Cardiovascular: regular rate, rhythm, no edema, no gallop Abdomen/GI: normal bowel sounds, non tender, soft Back: normal inspection, no CVA tenderness Extremities/Musculoskelatal: normal inspection, no calf tenderness, normal capillary refill Neurologic/Psych: cycle consultant II-XII nml as tested, no motor/sensory deficits, alert, oriented x 3 Skin: normal color Laboratory Results Last 24 Hours Test 09/12/17 13:17 White Blood Count 14.22 K/uL Red Blood Count 3.78 M/uL Hemoglobin 11.8 g/dL Hematocrit 33.7 % Mean Corpuscular Volume 89.2 fL Mean Corpuscular Hemoglobin 31.2 pg Mean Corpuscular Hemoglobin Concent 35.0 g/dl Platelet Count 188 K/uL Mean Platelet Volume 9.8 fL Neutrophils (%) (Auto) 78.6 % Lymphocytes (%) (Auto) 8.1 % Monocytes (%) (Auto) 12.9 % Eosinophils (%) (Auto) 0.0 % Basophils (%) (Auto) 0.1 % Neutrophils # (Auto) 11.18 K/uL Lymphocytes # (Auto) 1.15 K/uL Monocytes # (Auto) 1.84 K/uL Eosinophils # (Auto) 0.00 K/uL Basophils # (Auto) 0.01 K/uL RDW Standard Deviation 43.9 fL RDW Coefficient of Variation 13.6 % Immature Granulocyte % (Auto) 0.3 % Immature Granulocyte # (Auto) 0.04 K/uL Sodium Level 137 mmol/L Potassium Level 3.2 mmol/L Chloride Level 106 mmol/L Carbon Dioxide Level 23 mmol/L Anion Gap 8.0 mmol/L Blood Urea Nitrogen 13 mg/dl Creatinine 0.62 mg/dl Est Creatinine Clear Calc Drug Dose 163.0 ml/min Estimated GFR () 148.3 Estimated GFR (Non- 128.0 BUN/Creatinine Ratio 21.1 Random Glucose 91 mg/dl Calcium Level 8.4 mg/dl Total Bilirubin 1.2 mg/dl Direct Bilirubin 0.3 mg/dl Aspartate Amino Transf (AST/SGOT) 9 U/L Alanine Aminotransferase (ALT/SGPT) 20 U/L Alkaline Phosphatase 59 U/L Total Protein 7.5 gm/dl Albumin 3.3 gm/dl Lipase 40 U/L Assessment & Plan 22 y/o F - no known medical history. Presented with cough and left/mid back pain 09/12. She has a family history of PEs and was therefore sent for a CT chest. This revealed a LLL PNM and pneumonitis. Leukocytosis is present on labs. The was D/Cd from the ER and returned one day later due to persistent pain. She is afebrile at the time of medical evaluation. Imaging and the presence of pneumonitis may suggest aspiration although she has no history of such. The pt has a LLL PNM and pneumonitis. Aspiration is suspected. She does not meet pneumonia criteria for admission. She vasquez not have oxygen requirement or BL infiltrates. She had presented to the hospital a second time primarily due to pain which is now controlled with a combination of antiinflammatories and narcotics. She will be DCd with instructions to cycle both medications per the ER. In addition she has received a Lidocaine patch and a course of Augmentin. She is advise to return to the hospital with SOB, recurrent fevers or pain which cannot be controlled with her current meds. She is advised to maintain mobility owing to a family history of PEs. Total time for this consult including review of labs, meds, imaging, records - discussion with pt and ER attending - 37 min
[2017-09-12] MEDS ORDERED: METH10TA4 PO (20:43)
[2017-09-12] MEDS ORDERED: AMOXICILLIN/CLAVULANATE TAB 875 MG TAB PO ONE (20:46)
[2017-09-12] MEDS ORDERED: LIDODERM (LIDOCAINE) PATCH 5% ONE (20:47)
[2017-09-12 20:55] VITALS: BP 127/82; PULSE 96; O2SAT 95
[2017-09-12] MEDS ORDERED: LIDODERM (LIDOCAINE) PATCH 5% TD ONE (21:00)
[2017-09-12] MEDS ORDERED: MULT-506 PO (21:29)
[2017-09-12] MEDS ORDERED: CNC/36 PO (21:29)
== END 2017-09-12 21:30 | disposition home or self-care (01) ==
LOC: C.EDB 12:07
DX: J18.9 Pneumonia, unspecified organism (principal); Z79.899 Other long term (current) drug therapy

== ENCOUNTER 2017-09-15 11:43 | Inpatient (IN) | payer OTHER ==
[~2017-09-15] VITALS: Ht 170.2 cm; Wt 91.4 kg
[~2017-09-15 11:43] MED LIST changes: +AMOX875T PO; +CNC/36 PO; +IBUP-1451 PO; +METH10TA4 PO; +MULT-506 PO; +ONDA-170 PO; +PRED20TA PO
[2017-09-15] MEDS ORDERED: ACETAMINOPHEN 325 MG TAB PO PRN (13:00)
[2017-09-15] MEDS ORDERED: POLYETHYLENE (MIRALAX) 17 GM PACK PO PRN (13:00)
[2017-09-15] MEDS ORDERED: MAGNESIUM HYDROXIDE SUSP 30 ML UDC PO PRN (13:00)
[2017-09-15 13:21] VITALS: BP 131/85; PULSE 86; TEMP 36.6; O2SAT 93; Ht 170.2 cm; Wt 91.4 kg
[2017-09-15 13:27] LABS: HEMOGLOBIN 10.4 g/dL (12.0-16.0); MEAN CELL VOLUME 88.6 fL (80-100); MEAN CORPUSCULAR HEMOGLOBIN 29.7 pg (25-34); MEAN CORPUSCULAR HGB CONC 33.5 g/dl (32-36); MEAN PLATELET VOLUME 9.4 fL (7.4-10.4); PLATELET COUNT 200 K/uL (130-400); RED CELL DISTRIBUTION WIDTH CV 13.6 % (11.5-14.5); RED CELL DISTRIBUTION WIDTH SD 44.1 fL (36.4-46.3); WHITE BLOOD COUNT 11.43 K/uL (4.8-10.8)
[2017-09-15 13:35] LABS: PTT PATIENT 29.8 SECONDS (21.0-31.0)
[2017-09-15 13:43] VITALS: BP 131/85; PULSE 86; TEMP 36.6; O2SAT 93
[2017-09-15] MEDS ORDERED: IV FLUIDS COMPLETED PRN (13:45)
[2017-09-15 13:56] LABS: BLOOD UREA NITROGEN 12 mg/dl (7-18); CARBON DIOXIDE 24 mmol/L (21-32); CREATININE 0.49 mg/dl (0.60-1.20); GLUCOSE 79 mg/dl (70-99); SODIUM 139 mmol/L (136-145)
--- NOTE | 2017-09-15 14:29 | History and Physical ---
History & Physical Date & Time of Service: Sep 15, 2017 at 14:28 Chief Complaint: Pleuritic Chest Pain Primary Care Physician: Paola Rendon M.D. History of Present Illness Source: patient Ms. Jacques is a 22 y/o female with unremarkable PMHx who presents as a direct from [facility] for progressive SOB. Patient has had long- standing issues with initially URI symptoms leading to symptoms of SOB and pleuritic CP. She reports being diagnosed with the Flu back in July and reports she was getting better from that. She initially had a non-productive cough and sore throat and was swabbed for strep but did not show positive. She then progressively worsened and was evaluated in the ED on 08/27 and was prescribed Levaquin. She reports that she didn't have significant improvement. She was then seen in the ED for L flank pain on 09/11 and CTA obtained that showed trace L pleural effusion with subsegmental consolidative and groundglass opacities suggesting pneumonitis. This CT was poor to fu She was again prescribed Levaquin. She came back to the ED on 09/12 and was converted to Augmentin for concern for possible aspiration. However patient reports no choking issues does have intermittent nausea and vomiting. She reports she has had intermittent steroids during these treatments. She did have Augmentin and a dose of steroids yesterday but nothing today. Had steroid injection a couple days back. Currently she is experiencing pleuritic CP, SOB at rest and with exertion, and orthopnea. She is reporting approx. 15 lbs weight gain over the past couple weeks that she relates to steroids. Reporting facial/neck swelling and b/l lower extremity swelling but reports this is improving. She has not had fever/chills, sinus congestions, or sore throat. She does report a FMHx of PE in her mother and grandmother related to Factor V that she has tested negative for. She also reports FMHx of Lupus but state she has seen Dr. Mcpherson with Rheum and tested negative for this. She is not on contraceptives. She is afebrile with mild leukocytosis. She is no respiratory distress and appropriately oxygenating on RA. Repeat CT showing progressive L pleural effusion that appears rather loculated on imaging. Discussed with Dr. Saavedra who states this is likely empyema and will need further exploration. Past Medical/Surgical History 1. Unremarkable PMHx or Surgical History Family History Factor V Leiden MOTHER, GRANDMOTHER Pulmonary Embolism MOTHER, GRANDMOTHER Systemic Lupu Erythematosus MOTHER, Social History Smoking Status: Never Smoker Smokeless Tobacco Use: No Alcohol Use: socially Drug Use: none Marital Status: single Occupational Status: [employer] student Allergies Coded Allergies: No Known Allergies (Unverified , 09/11/17) Home Medications Scheduled Amoxicillin & Pot Clavulanate (Augmentin 875-125 mg), 875 MG PO BID Levofloxacin (Levaquin), 750 MG PO DAILY Lidocaine (Lidocaine), 5 % TD DAILY Methylphenidate (Ritalin), 10 MG PO DAILY Methylphenidate Hcl (Concerta), 36 MG PO DAILY Multivitamin (Multivitamin), 1 TAB PO DAILY Prednisone (Prednisone), 20 MG PO DAILY Scheduled PRN Ibuprofen Tab (Motrin), 800 MG PO Q6H PRN for Pain Ondansetron Hcl (Zofran), Unknown Dose PO for Nausea Oxycodone/Acetaminophen 5MG/325MG (Percocet 5MG/325MG), 1-2 TAB PO Q4H PRN for Pain Review of Systems Constitutional: No fever, No chills Respiratory: + cough, + wheezing, + dyspnea on exertion, + dyspnea at rest, No sputum, No hemoptysis Cardiovascular: + orthopnea, No chest pain Abdomen: + nausea, No pain, No vomiting, No diarrhea, No constipation Musculoskeletal: No swelling, No calf pain Genitourinary - Female: No dysuria Hematologic / Lymphatic: No abnormal bleeding/bruising Integumentary: No rash Physical Exam Vital Signs Date Time Temp Pulse Resp B/P (MAP) Pulse Ox O2 Delivery O2 Flow Rate FiO2 09/15/17 13:43 36.6 86 20 131/85 (100) 93 Room Air 09/15/17 13:21 36.6 86 20 131/85 93 Room Air General Appearance: WD/WN, no apparent distress Head: normocephalic, atraumatic Eyes: sclerae normal ENT: hearing grossly normal Neck: supple, no JVD, trachea midline Respiratory/Chest: no respiratory distress, no accessory muscle use, + decreased breath sounds (L base and minimal at R base), + pertinent finding ( dull to percussion of R and L base with L > R) Cardiovascular: regular rate, rhythm, no gallop, no murmur Abdomen/GI: normal bowel sounds, non tender, soft Extremities/Musculoskelatal: no calf tenderness, no pedal edema Neurologic/Psych: alert, oriented x 3 Skin: normal color, warm/dry Lymphatic: no adenopathy Diagnostics Laboratory Results Results Past 24 Hours Test 09/15/17 13:12 Range/Units White Blood Count 11.43 4.8-10.8 K/uL Red Blood Count 3.50 4.2-5.4 M/uL Hemoglobin 10.4 12.0-16.0 g/dL Hematocrit 31.0 37-47 % Mean Corpuscular Volume 88.6 80-100 fL Mean Corpuscular Hemoglobin 29.7 25-34 pg Mean Corpuscular Hemoglobin Concent 33.5 32-36 g/dl RDW Standard Deviation 44.1 36.4-46.3 fL RDW Coefficient of Variation 13.6 11.5-14.5 % Platelet Count 200 130-400 K/uL Mean Platelet Volume 9.4 7.4-10.4 fL Prothrombin Time 10.2 9.0-12.0 SECONDS Prothromb Time International Ratio 1.0 0.9-1.1 Activated Partial Thromboplast Time 29.8 21.0-31.0 SECONDS Partial Thromboplastin Ratio 1.1 Sodium Level 139 136-145 mmol/L Potassium Level 3.0 3.5-5.1 mmol/L Chloride Level 107 98-107 mmol/L Carbon Dioxide Level 24 21-32 mmol/L Anion Gap 8.0 3-11 mmol/L Blood Urea Nitrogen 12 7-18 mg/dl Creatinine 0.49 0.60-1.20 mg/dl Est Creatinine Clear Calc Drug Dose 211.3 ml/min Estimated GFR () > 150.0 Estimated GFR (Non- 138.3 BUN/Creatinine Ratio 25.1 10-20 Random Glucose 79 70-99 mg/dl Calcium Level 8.0 8.5-10.1 mg/dl Diagnostic Radiology CT ANGIOGRAM OF THE CHEST CLINICAL HISTORY: Atypical chest pain COMPARISON STUDY: September 11, 2017 TECHNIQUE: Following the IV administration of 114 mL of Optiray-320, CT angiogram of the thorax was performed from the thoracic inlet to the lung bases utilizing the pulmonary embolus protocol. Images are reviewed in the axial, sagittal, and coronal planes. IV contrast was administered without complication. MIP imaging was performed. A dose lowering technique was utilized adhering to the principles of ALARA. CT DOSE: 490.35 mGycm FINDINGS: No pathologically enlarged axillary mediastinal or hilar lymph nodes were visualized. There was no evidence of thoracic aortic dilatation. There were no pulmonary artery filling defects to indicate acute pulmonary embolism. There is an increasing moderate left pleural effusion, and interval development of a small right pleural effusion. There is respiratory motion artifact. There is left lower lobe compressive atelectasis. Atelectatic changes are also present within the lingula and right lower lobe. IMPRESSION: 1. No evidence of acute pulmonary embolism 2. Significant interval increase in the size of the left pleural effusion, and interval development of a small right pleural effusion 3. Compressive atelectasis of the left lower lobe. Atelectatic changes are also visualized in the right lower lobe and lingula EKG Normal sinus rhythm Normal ECG When compared with ECG of 12-SEP-2017 13:37, No significant change was found Confirmed by HENRY CHAVEZ ([id number]) on 09/15/2017 1:57:28 PM Impression Assessment and Plan Ms. Jacques is a 22 y/o female with unremarkable PMHx who presents as a direct from [facility] for progressive SOB. Patient has had long- standing issues with initially URI symptoms leading to symptoms of SOB and pleuritic CP. Empyema: - She has had multiple rounds of steroids and Abx to include Levaquin and Augmentin prior to presentation however continues to complain of SOB/orthopnea - CT reviewed showing significant increase in pleural effusion with reviewing imaging appears possibly loculated as it is not just located at dependent positions; no evidence of PE - Patient has been tested for Factor V and reporting this is negative; Also tested for Lupus and negative - strong family history of both - was evaluated by Dr. Mcpherson; ESR and CRP are elevated but likely not a rheumatological issue - Discussed with Dr. Saavedra from pulmonology and recommended possible VATS vs chest tube placement - was discussed with Dr. Belle for further evaluation and intervention - Zosyn and Zithromax for broad coverage including atypicals - will hold on MRSA coverage at this time - Pain control with Toradol and Percocet DVT Prophylaxis: Heparin 5000 units SC Q8H Code Status: FULL RESUSCITATION Disposition: - Plan for intervention by Dr. Belle PA Physician Supervision Note: I was present with Sarai Starr PAC during the history and exam. I discussed the case with the resident and agree with the findings and plan as documented in the note. Any exceptions or clarifications are listed here: None Patient seen and examined, chart reviewed, case discussed with ANILA Starr and I agree with her assessment and plan as above. Briefly, patient is a 22yo C female with no significant past medical history, recent suspected influenza infection presenting with progressive SOB, orthopnea and left sided pleuritic chest pain. On exam patient was hemodynamically stable, no acute distress. Cardiac exam normal, lungs with diminished breath sounds in the left, dullness to precussion. Remainder of exam benign. Laboratory results with elevated ESR and CRP at 42 and 14.2 respectively, WBC=11.43. CTA was performed which was negative for PE, revealed progressive left sided pleural effusion with loculations and compressive atelectasis. Differential diagnosis at this time includes post infectious collection, empyema, rheumatologic disease. Will admit to telemetry unit. Antibiotic coverage with Zosyn and Azithromycin. Consultation with Pulmonary and thoracic surgery for possible CT placement vs VATS. Remainder of plan as above Documented By: Lida Celaya Advanced Directives Existing Living Will: No Existing Power of Drier Attendant: No Resuscitation Status VTE Prophylaxis Will order VTE Prophylaxis: Yes
[2017-09-15] MEDS ORDERED: OPTIRAY 320 IV PRN (14:45)
[2017-09-15] MEDS: KETOROLAC TROMETHAMINE 15 MG/ML VIAL IV PRN ×2 (14:53→21:08)
--- NOTE | 2017-09-15 16:05 | DIAGNOSTIC IMAGING REPORT ---
CT ANGIOGRAM OF THE CHEST CLINICAL HISTORY: Atypical chest pain COMPARISON STUDY: September 11, 2017 TECHNIQUE: Following the IV administration of 114 mL of Optiray-320, CT angiogram of the thorax was performed from the thoracic inlet to the lung bases utilizing the pulmonary embolus protocol. Images are reviewed in the axial, sagittal, and coronal planes. IV contrast was administered without complication. MIP imaging was performed. A dose lowering technique was utilized adhering to the principles of ALARA. CT DOSE: 490.35 mGycm FINDINGS: No pathologically enlarged axillary mediastinal or hilar lymph nodes were visualized. There was no evidence of thoracic aortic dilatation. There were no pulmonary artery filling defects to indicate acute pulmonary embolism. There is an increasing moderate left pleural effusion, and interval development of a small right pleural effusion. There is respiratory motion artifact. There is left lower lobe compressive atelectasis. Atelectatic changes are also present within the lingula and right lower lobe. IMPRESSION: 1. No evidence of acute pulmonary embolism 2. Significant interval increase in the size of the left pleural effusion, and interval development of a small right pleural effusion 3. Compressive atelectasis of the left lower lobe. Atelectatic changes are also visualized in the right lower lobe and lingula Electronically signed by: Maninder Mckenzie M.D. 09/15/2017 4:03 PM Dictated Date/Time: 09/15/2017 3:58 PM
[2017-09-15 16:23] VITALS: BP 126/79; PULSE 87; TEMP 37.3; O2SAT 95
[2017-09-15] MEDS ORDERED: AZITHROMYCIN IV 500 MG in DEXTROSE 5% 250ML 250 ML IV ONE (17:56)
[2017-09-15] MEDS ORDERED: POTASSIUM CHLORIDE 20 MEQ TABCR PO STA (17:59)
[2017-09-15] MEDS ORDERED: PIPERACILL/TAZOBAC CONSULT ACTIVE PRN (18:00)
[2017-09-15] MEDS ORDERED: PIPERACILL/TAZOBAC IV 3.375 GM in DEXTROSE 5% 100ML IV ONE (18:30)
[2017-09-15] MEDS: AZITHROMYCIN IV 500 MG in DEXTROSE 5% 250ML 250 ML IV SCH (19:03)
[2017-09-15 19:40] VITALS: BP 141/89; PULSE 94; TEMP 36.3; O2SAT 95
[2017-09-15] MEDS: OXYCODONE/ACETAMINOPHEN 5-325 TAB PO PRN ×2 (19:56→23:53)
[2017-09-15] MEDS: ONDANSETRON INJ 2 MG/ML 2 ML VIAL IV PRN (20:02)
--- NOTE | 2017-09-15 20:44 | SURGICAL CONSULTATION ---
DATE OF CONSULTATION: 09/15/2017 REASON FOR CONSULTATION: Left parapneumonic effusion. 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 About 3 weeks ago, before deporting to [place] for spring, the patient noted pleuritic type chest pain. When she came back, it worsened and she was seen in the ER a couple of times and was told she had pneumonia and was treated. She presented back with relative hypoxemia which was noticed at [facility] and she was sent to the ER and admitted. She has a family history of her mother dying when the patient was 18 years old, from pulmonary embolism. Her father from apparent idiopathic cardiomyopathy before she was born. There is a history of possible lupus which she has been worked up for at [facility]. She also has a history of pneumonia as well as bronchitis and asthma as a youth. She is a nondrinker, nonsmoker. I was asked to see the patient when a CT scan showed she had a complex fluid collection in her left chest. Temperature was 37.3. White count was elevated a bit at 11,430 which is down from 14,220 from 3 days ago. It should be noted that she had a CT scan done 4 days ago which showed a small amount of fluid and really not a lot going on in her left lung other than small amount of ground-glass opacities in her left base. She also had trace effusion. PAST MEDICAL HISTORY: 1. Questionable lupus (she is being followed at [facility] for this condition). 2. History of pneumonia. 3. History of bronchitis. PAST SURGICAL HISTORY: None. ALLERGIES: LATEX BUT NO DRUG ALLERGIES. FAMILY MEDICAL HISTORY: Father from apparent idiopathic cardiomyopathy and mother from pulmonary embolism when the patient was 18. She has no siblings. There is one grandparent living. There is a history of an undefined cancer in her family. SOCIAL HISTORY: The patient lives with a roommate. She really does not drink. She does not smoke cigarettes. She is a senior in genetics and is scheduled to graduate this October. REVIEW OF SYSTEMS: The patient feels that she has been febrile at times at home. She denies any visual or auditory symptoms. She has had no photophobia. She denies any decreased hearing acuity and has had no epistaxis. She does have a cough and has produced sputum, although this has improved a bit. She now has mostly nonproductive cough. She has been more short of breath, her dyspnea on exertion has worsened in the last 2 days. She denies midsternal pain but does have pain on the left side which is pleuritic. She has also had some swelling in her hands and feet which she has never had before. She denies any urinary symptoms such as some hematuria or dysuria. She has had no nausea, vomiting, diarrhea or GI symptoms. She has had no neurologic symptoms such as amaurosis fugax or seizure. PHYSICAL EXAMINATION: GENERAL: This is a 5-foot 7-inch, 206-pound female who is awake, alert, oriented and tearful. HEENT: Her pupils are equally round. Her sclerae are injected, anicteric. It should be noted the patient is tearful. She has no nasal polyps. She has no nasolabial flattening. Her tongue is midline. Her teeth are in good repair. NECK: Supple with no neck vein distention, thyromegaly or bruits. She has decreased breath sounds on the left. She is complaining of pleuritic chest pain but I feel no crepitus. She has no lymphadenopathy in her supraclavicular, cervical or axillary area. HEART: Regular rate and rhythm without significant murmur or rub, with heart rate in the 80s. ABDOMEN: Soft, nontender. EXTREMITIES: She has trace edema of her lower extremities with excellent peripheral pulses. She has no joint effusions. NEUROLOGIC: She is completely intact. Cranial nerves II-XII are intact. DATA: She has mild temperature elevation at 37.3 with a white count which has come down from 14,220 to 11,430 over the last 3 days. Her ESR is 42. Her CT scan shows a significant increase in this left pleural effusion. She also has a smaller right pleural effusion. ASSESSMENT AND PLAN: Left parapneumonic effusion. I had a long discussion with the patient and her roommate at bedside. The patient is extremely anxious. I told her that her options include thoracentesis, an indwelling pleural catheter or surgery. The patient is extremely anxious and says she cannot take needles. After a long discussion, we have elected to proceed with a thoracoscopy tomorrow. I think that she is stable enough to watch in PCU until the morning. We will put her on the schedule for a left thoracoscopy, evacuation of pleural fluid. We will do liposomal bupivacaine block while we are there. She was relieved that we were not going to be doing a thoracentesis or a pleural catheter insertion tonight. Thank you very much.
[2017-09-15] MEDS: LORAZEPAM 1 MG TAB PO PRN (21:08)
[2017-09-15] MEDS: HEPARIN SOD 5000 UNIT/0.5 ML CARP SQ SCH (22:10)
[2017-09-15 23:30] VITALS: BP 136/84; PULSE 103; TEMP 37.3; O2SAT 93
[2017-09-15] MEDS: PIPERACILL/TAZOBAC IV 3.375 GM in DEXTROSE 5% 100ML 100 ML IV SCH (23:53)
[2017-09-16 03:30] VITALS: BP 134/84; PULSE 103; TEMP 37.3; O2SAT 90
[2017-09-16] MEDS: KETOROLAC TROMETHAMINE 15 MG/ML VIAL IV PRN ×2 (04:59→10:26)
[2017-09-16] MEDS: ONDANSETRON INJ 2 MG/ML 2 ML VIAL IV PRN ×2 (05:04→21:50)
[2017-09-16] MEDS: LORAZEPAM 1 MG TAB PO PRN ×3 (05:04→22:39)
[2017-09-16 05:46] LABS: HEMATOCRIT 31.5 % (37-47); HEMOGLOBIN 11.1 g/dL (12.0-16.0); MEAN CORPUSCULAR HEMOGLOBIN 31.4 pg (25-34); MEAN CORPUSCULAR HGB CONC 35.2 g/dl (32-36); MEAN PLATELET VOLUME 9.2 fL (7.4-10.4); PLATELET COUNT 215 K/uL (130-400); RED CELL DISTRIBUTION WIDTH CV 13.8 % (11.5-14.5); RED CELL DISTRIBUTION WIDTH SD 45.3 fL (36.4-46.3)
[2017-09-16] MEDS: HEPARIN SOD 5000 UNIT/0.5 ML CARP SQ SCH ×2 (05:57→13:04)
[2017-09-16 06:27] LABS: BLOOD UREA NITROGEN 14 mg/dl (7-18); CALCIUM 7.7 mg/dl (8.5-10.1); CARBON DIOXIDE 27 mmol/L (21-32); CREATININE 0.57 mg/dl (0.60-1.20); GLUCOSE 74 mg/dl (70-99); POTASSIUM 3.5 mmol/L (3.5-5.1); SODIUM 139 mmol/L (136-145)
[2017-09-16 07:42] VITALS: BP 133/93; PULSE 108; TEMP 37.1; O2SAT 91
[2017-09-16] MEDS: PIPERACILL/TAZOBAC IV 3.375 GM in DEXTROSE 5% 100ML 100 ML IV SCH ×2 (07:58→15:59)
--- NOTE | 2017-09-16 08:00 | History & Physical Bridge Note ---
H&P Re-Evaluation Bridge Note: I have examined the patient, reviewed the History & Physical and in the interval since the performance of the History & Physical I have noted the following changes of clinical significance: No changes noted
[2017-09-16] MEDS: LIDODERM (LIDOCAINE) PATCH 5% TD SCH (08:01)
[2017-09-16] MEDS ORDERED: METHYLPHENIDATE HCL 10 MG TAB PO SCH (09:00)
[2017-09-16] MEDS ORDERED: MAGNESIUM SULFATE 1GM / D5W 1 GM in PREMIXED IN D5W 100 ML IV ONE (09:00)
[2017-09-16] MEDS: OXYCODONE/ACETAMINOPHEN 5-325 TAB PO PRN ×2 (09:13→19:45)
[2017-09-16] MEDS ORDERED: EpHEDrine SULFATE INJ 50 MG/ML AMP IV PRN (10:00)
[2017-09-16] MEDS ORDERED: HYDROmorphone INJ 1 MG/ML SYR IV PRN (10:00)
[2017-09-16] MEDS ORDERED: ATROPINE SULFATE 0.1 MG/ML 5ML SYR IV PRN (10:00)
[2017-09-16] MEDS ORDERED: FENTANYL CITRATE INJ 50 MCG/1 ML 2 ML VIAL IV PRN (10:00)
[2017-09-16] MEDS ORDERED: LABETALOL HCL IV 5 MG/ML 20ML IV PRN (10:00)
[2017-09-16] MEDS ORDERED: MEPERIDINE HCL 25 MG/ML CARP IV PRN (10:00)
[2017-09-16] MEDS ORDERED: ONDANSETRON INJ 2 MG/ML 2 ML VIAL IV PRN (10:00)
[2017-09-16 11:51] VITALS: BP 128/82; PULSE 103; TEMP 37.6; O2SAT 92
--- NOTE | 2017-09-16 13:34 | Hospitalist Progress Note ---
Hospitalist Progress Note Date of Service Sep 16, 2017. (Nury Joyner ., FERNANDA-C) Subjective Pt evaluation today including: conversation w/ patient, physical exam, chart review, lab review, review of studies, review of inpatient medication list Pain: 7/10 sharp left chest/back pain PO Intake: NPO for procedure Voiding: no voiding problems The patient was seen this morning prior to thoracoscopy. She complains of a 7/ 10 sharp pain in the left side of her chest/left side of her back that is worse with deep breaths, coughing and movement. She notes some shortness of breath and nausea. The patient denies fevers, chills, sweats, palpitations, claudication, cough, wheezing, vomiting, abdominal pain, dysuria, hematuria, urinary retention, paralysis, weakness, numbness and tingling. Additional Comments: See HPI for pertinent positives and negatives. All other systems reviewed and negative. (Nury Joyner ., FERNANDA-C) Objective Vital Signs Date Time Temp Pulse Resp B/P (MAP) Pulse Ox O2 Delivery O2 Flow Rate FiO2 09/16/17 12:00 Room Air 09/16/17 11:51 37.6 103 19 128/82 (97) 92 Room Air 09/16/17 08:00 Room Air 09/16/17 07:42 37.1 108 19 133/93 (106) 91 Room Air 09/16/17 04:00 Room Air 09/16/17 03:30 37.3 103 22 134/84 (101) 90 Room Air 09/16/17 00:00 Room Air 09/15/17 23:30 37.3 103 18 136/84 (101) 93 Room Air 09/15/17 20:00 Room Air 09/15/17 19:40 36.3 94 18 141/89 (106) 95 Room Air 09/15/17 16:23 37.3 87 18 126/79 (95) 95 Room Air 09/15/17 15:42 Room Air 09/15/17 13:43 36.6 86 20 131/85 (100) 93 Room Air 09/15/17 13:21 36.6 86 20 131/85 93 Room Air (Nury Joyner ., FERNANDA-C) Physical Exam Notes: General appearance: +Obese. Well-developed, well-nourished, no apparent distress Head: Normocephalic, atraumatic Eyes: Normal inspection, PERRL, EOMI ENT: Normal ENT inspection, hearing grossly normal, pharynx normal Neck: Supple, no JVD, trachea midline Respiratory/Chest: +Decreased breath sounds L>R, poor respiratory effort due to pain. Lungs clear to auscultation, no respiratory distress Cardiovascular: +Tachycardic. Regular rhythm, no gallop, no murmur Abdomen/GI: Normal bowel sounds, non-tender, soft Extremities/Musculoskeletal: Normal inspection, no calf tenderness, no pedal edema Neurological/Psych: +Very anxious regarding upcoming procedure. Alert, oriented x 3 Skin: Normal color, warm/dry, no rash (Nury Joyner ., PA-C) Laboratory Results Last 24 Hours Test 09/16/17 05:08 White Blood Count 8.90 K/uL Red Blood Count 3.54 M/uL Hemoglobin 11.1 g/dL Hematocrit 31.5 % Mean Corpuscular Volume 89.0 fL Mean Corpuscular Hemoglobin 31.4 pg Mean Corpuscular Hemoglobin Concent 35.2 g/dl RDW Standard Deviation 45.3 fL RDW Coefficient of Variation 13.8 % Platelet Count 215 K/uL Mean Platelet Volume 9.2 fL Sodium Level 139 mmol/L Potassium Level 3.5 mmol/L Chloride Level 106 mmol/L Carbon Dioxide Level 27 mmol/L Anion Gap 6.0 mmol/L Blood Urea Nitrogen 14 mg/dl Creatinine 0.57 mg/dl Est Creatinine Clear Calc Drug Dose 181.7 ml/min Estimated GFR () > 150.0 Estimated GFR (Non- 131.6 BUN/Creatinine Ratio 24.4 Random Glucose 74 mg/dl Calcium Level 7.7 mg/dl Magnesium Level 1.7 mg/dl (Nury Joyner ., PA-C) Assessment and Plan 22 y/o female with a history of ADHD who presents for direct admission from [facility] for progressive SOB. Patient has had long-standing issues with initially URI symptoms leading to symptoms of SOB and pleuritic CP. Suspected empyema, large loculated left pleural effusion--stable - Admit to telemetry. No acute events overnight. Pt in sinus rhythm/sinus arrhythmia with HR 80s-90s mostly, up to 130s - CT chest compared to 09/11 study shows significant increase in left pleural effusion, does appear to be possibly loculated upon my review. Negative for PE. - Family h/o PE, Factor V and Lupus, pt has tested negative for these - Thoracic surgery consulted, appreciate recs: Pt agrees to thoracoscopy planned for today, will also do liposomal bupivacaine block - NPO for procedure - Zosyn and Zithromax IV for broad coverage - Pain control with Toradol and Percocet, block as above during thoracoscopy - Pt very anxious regarding procedure, Ativan 1 mg PO q8h prn ADHD--stable -Continue Concerta ER 36 mg PO qd, Ritalin 10 mg PO qd prn -Regimen confirmed w/pt's pharmacy DVT prophylaxis -Heparin 5000 units SC q8h Code Status -Level I, FULL RESUSCITATION STATUS (Nury Joyner, SRAVAN) I personally interviewed and examined the patient. I agree with history of present illness and physical exam mentioned above, I also performed my own history taking and examination. Past medical history and review of system has been obtained by myself I reviewed all pertinent labs and studies Reviewed current medications I discussed and formulated of the assessment and plan mentioned above. Please refer to the Summary mentioned below. 22-year-old female with family history of systemic lupus erythematosus and pulmonary embolism, she was tested negative for both. Patient had recent flu followed by secondary bacterial infection since then has been having shortness of breath and pleuritic pain, treated with 2 rounds of levofloxacin followed by Augmentin. Presented again with shortness of breath and large pleural effusion. Cardiothoracic surgery was consulted for chest tube placement. We will order on pleural fluid bacterial, fungal and AFB cultures, protein, glucose, triglycerides, LDH, creatinine, pH, adenosine deaminase and cytology Also will order sputum cultures and blood cultures, urine Legionella Continue empiric Zosyn/Zithromax General Appearance: not in acute distress Eyes: normal Sclerae, extraocular muscle intact ENT: hearing grossly normal Neck: supple Respiratory/Chest: Decreased air entry bilaterally, scattered rhonchi,no respiratory distress, no accessory muscle use Cardiovascular: regular rate, rhythm, no murmur Abdomen: non tender, soft, no masses Extremities: no edema Neurologic/Psychiatric: Awake alert oriented times place and person moves all extremities sensation intact cranial nerves II-12 appear to be intact Skin: normal color, warm/dry, no rash Kahlil Boone MD, [place] [facility] (Kahlil Lemus MD)
--- NOTE | 2017-09-16 13:46 | SURGERY PROGRESS NOTE ---
DATE: 09/16/2017 SUBJECTIVE: Liz was scheduled to undergo a left thoracoscopy, drainage of pleural effusion, possible decortication; however, she was an "add-on" and other emergency cases and a busy OR schedule is pushed her off until later this evening. I have arranged to postpone her surgery today, we will do her first thing in the morning at 7:00 or 7:30. I had a long discussion with her. She is anxious but better than she was yesterday. I had a long talk about our expected postoperative course. We will get her set up for surgery for the morning.
[2017-09-16 15:13] VITALS: BP 123/82; PULSE 101; TEMP 37; O2SAT 91
[2017-09-16] MEDS ORDERED: KETOROLAC TROMETHAMINE 15 MG/ML VIAL ONE (15:32)
[2017-09-16] MEDS: KETOROLAC TROMETHAMINE 15 MG/ML VIAL IV SCH ×2 (15:59→22:41)
[2017-09-16] MEDS: ACETAMINOPHEN 325 MG TAB PO SCH (18:16)
[2017-09-16 19:26] VITALS: BP 127/78; PULSE 105; TEMP 36.6; O2SAT 91
[2017-09-16] MEDS: AZITHROMYCIN IV 500 MG in DEXTROSE 5% 250ML 250 ML IV SCH (20:10)
[2017-09-16 23:30] VITALS: BP 124/79; PULSE 95; TEMP 37.1; O2SAT 96
[2017-09-17] VITALS (10 sets, daily range): BP systolic 113–141; BP diastolic 74–85; PULSE 66–105; TEMP 36.8–37.3; O2SAT 92–97
[2017-09-17] MEDS: PIPERACILL/TAZOBAC IV 3.375 GM in DEXTROSE 5% 100ML 100 ML IV SCH ×3 (00:28→21:42)
[2017-09-17] MEDS: ACETAMINOPHEN 325 MG TAB PO SCH ×2 (00:30→05:25)
[2017-09-17] MEDS: OXYCODONE/ACETAMINOPHEN 5-325 TAB PO PRN (03:35)
[2017-09-17] MEDS: KETOROLAC TROMETHAMINE 15 MG/ML VIAL IV SCH ×4 (05:24→23:52)
[2017-09-17 06:26] LABS: HEMATOCRIT 33.5 % (37-47); HEMOGLOBIN 11.1 g/dL (12.0-16.0); MEAN CELL VOLUME 89.6 fL (80-100); MEAN CORPUSCULAR HEMOGLOBIN 29.7 pg (25-34); MEAN CORPUSCULAR HGB CONC 33.1 g/dl (32-36); MEAN PLATELET VOLUME 9.1 fL (7.4-10.4); PLATELET COUNT 228 K/uL (130-400); RED CELL DISTRIBUTION WIDTH CV 13.8 % (11.5-14.5); RED CELL DISTRIBUTION WIDTH SD 45.4 fL (36.4-46.3); WHITE BLOOD COUNT 9.84 K/uL (4.8-10.8)
[2017-09-17] MEDS ORDERED: SODIUM CHLORIDE 0.9% PF 50 ML VIAL ONE ×2 (06:58→06:59)
[2017-09-17] MEDS ORDERED: BUPIVACAINE LIPOSOME 1/3% 266 MG/20 ML VIAL INFIL ONE (06:58)
[2017-09-17] MEDS ORDERED: BUPIVACAINE 0.5 % 5 MG/1 ML MPF 30ML VIAL ONE (06:59)
[2017-09-17] MEDS ORDERED: FENTANYL CITRATE INJ 50 MCG/1 ML 2 ML VIAL ONE ×2 (07:00→08:48)
[2017-09-17] MEDS ORDERED: PROPOFOL IV EMULSION 10 MG/ML 20 ML VIAL IV ONE (07:00)
[2017-09-17] MEDS ORDERED: LIDOCAINE HCL 2% 2 ML VIAL (20MG/ML) ONE (07:00)
[2017-09-17] MEDS ORDERED: MIDAZOLAM HCL 1 MG/ML 2ML VIAL ONE (07:00)
[2017-09-17] MEDS ORDERED: ROCURONIUM BROMIDE 10 MG/ML 5 ML VIAL IV ONE (07:00)
[2017-09-17 07:04] LABS: BLOOD UREA NITROGEN 9 mg/dl (7-18); CALCIUM 8.1 mg/dl (8.5-10.1); CARBON DIOXIDE 28 mmol/L (21-32); CREATININE 0.56 mg/dl (0.60-1.20); GLUCOSE 88 mg/dl (70-99); POTASSIUM 3.8 mmol/L (3.5-5.1); SODIUM 136 mmol/L (136-145)
[2017-09-17] MEDS ORDERED: ONDANSETRON INJ 2 MG/ML 2 ML VIAL ONE (07:52)
[2017-09-17] MEDS ORDERED: GLYCOPYRROLATE INJ 0.2 MG/ML VIAL ONE ×2 (07:52→08:48)
[2017-09-17] MEDS ORDERED: NEOSTIGMINE METHYLSULFATE 5 MG/5 ML SYR ONE (07:52)
[2017-09-17] MEDS ORDERED: DEXAMETHASONE SOD INJ 4 MG/ML VIAL ONE (07:52)
--- NOTE | 2017-09-17 08:51 | [facility] Post Operative Brief Note ---
Immediate Operative Summary Operative Date Sep 17, 2017. Pre-Operative Diagnosis Left Pleural Effusion Post-Operative Diagnosis Same as preop Procedure(s) Performed Left Thoracoscopy, Evacuation of Pleural Effusion, Partial Decortication Left Lower Lobe Surgeon Dr. Belle Slot Shift Supervisor Surgeon(s) Lawrence Castaneda PA-C Estimated Blood Loss 10 ml Findings Consistent with Post-Op Diagnosis Specimens Microbiology 1. Gram stain- pleural fluid left room at 0805 stat 2. pleural tissue-gram stain, c & s, aerobic and anerobic, AFB, Fungal stat 3. Pleural fluid gram stain, c & s, aerobic and anerobic, AFB, Fungal, cell count Permanent A. Left Pleural Contents B. Parietal and Viseral Peel Anesthesia Type General
[2017-09-17] MEDS ORDERED: ONDANSETRON INJ 2 MG/ML 2 ML VIAL IV PRN (09:00)
[2017-09-17] MEDS: LIDODERM (LIDOCAINE) PATCH 5% TD SCH ×2 (09:00→13:50)
[2017-09-17] MEDS: ENOXAPARIN 40 MG/0.4 ML SYR SQ SCH (09:00)
[2017-09-17] MEDS: DOCUSATE SODIUM 100 MG CAP PO SCH ×2 (09:00→21:32)
[2017-09-17] MEDS ORDERED: HYDROmorphone INJ 2 MG/ML SYR/VIAL IV PRN (09:00)
[2017-09-17] MEDS ORDERED: KETOROLAC TROMETHAMINE 30 MG/ML VIAL IV. PRN (09:00)
[2017-09-17] MEDS ORDERED: ATROPINE SULFATE 0.1 MG/ML 5ML SYR IV PRN (09:00)
[2017-09-17] MEDS ORDERED: D5W AND 1/2NSS 1,000 ML IV SCH (09:15)
--- NOTE | 2017-09-17 09:25 | DIAGNOSTIC IMAGING REPORT ---
CHEST ONE VIEW PORTABLE CLINICAL HISTORY: 22 years-old Female presenting with decortication. TECHNIQUE: Portable upright AP view of the chest was obtained. COMPARISON: 09/12/2017. FINDINGS: Large bore left pleural drain terminates at the left apex. Cardiac silhouette prominence. Pulmonary vascular prominence. Increased hazy bibasilar opacities. Bilateral pleural effusions suggested. No large pneumothorax. Osseous structures normal. Upper abdomen normal. IMPRESSION: 1. Findings suggest volume overload with mild pulmonary edema or less likely aspiration. 2. Small pleural effusions. 3. No pneumothorax. Electronically signed by: Jeremy Croft M.D. 09/17/2017 9:24 AM Dictated Date/Time: 09/17/2017 9:22 AM
--- NOTE | 2017-09-17 09:39 | OPERATIVE REPORT ---
DATE OF OPERATION: 09/17/2017 PREOPERATIVE DIAGNOSIS: Left parapneumonic effusion. POSTOPERATIVE DIAGNOSIS: Left empyema with trapped left lower lobe. PROCEDURE: 1. Left thoracoscopy with drainage of pleural effusion. 2. Partial decortication of left lower lobe. SURGEON: Hu Belle MD. PRODUCTION COUNTER: FERNANDA Vasquez, (Mr. Castaneda was present for the entire case. He managed the camera and was instrumental in the conduct of the case. He closed the skin incisions at the conclusion). ANESTHESIA: General anesthesia with endotracheal intubation using single lumen tube. SPECIFICS OF PROCEDURE: This is a 22-year-old female who is interesting and having had a severe pneumonia about 2 years ago. She is a senior at [employer]. Her mother from pulmonary embolism and suffered from lupus. The patient has been worked up in [place] for connective tissue disorder. She is not currently being treated for such. The patient presented with some pleuritic left chest pain and cough, has been treated with antibiotics and has been sick for about 3 weeks. She underwent an evaluation at the Emergency Room and interestingly enough on 09/12/2017, she had very little in the way of any fluid in her chest and was treated with p.o. antibiotics. She worsened and came back in on the and was seen to have a large amount of fluid. She is extremely anxious. Performing a bedside procedure was going to cause a tremendous amount of stress for this patient. As we discussed, I felt that a thoracoscopy with drainage would be appropriate. On 09/17/2017, the patient was brought to the operating room and underwent a thoracoscopic procedure. I was surprised at the fibrin debris given the short course of this. She really had no fluid in her chest 5 days ago and now has fibrin deposition on her lower lobe. I removed this material. We drained about a liter of fluid. I did an Exparel block. She improved from an oxygen standpoint over the course of the case. She tolerated it well and was extubated in the room. DESCRIPTION OF THE PROCEDURE: The patient brought to operating room, laid in supine position. General anesthesia induced, endotracheal intubation was performed with single lumen tube. The patient was turned to right lateral decubitus position and her left chest prepped and draped in usual sterile fashion. Two 5 mm incisions were made, one just an interspace below and posterior to the scapular tip and the other in the anterior midclavicular line, anterior to the latissimus dorsi about the fourth interspace. There was large amount of fluid and we sent this off for stat gram stain. We then placed another 5 mm port at about the eighth interspace and anteriorly. With these 3 ports, we then suctioned out about a liter of rust colored fluid. We sent some of this to the lab. There was also a great deal of debris. I changed out the 5 mm port anteriorly and inferiorly for a 12 mm port, so I could use larger clamps and I removed a large amount of fibrinous debris. There was a peel on the lower lobe which I removed. I did not see actual pus. We suctioned out this and the lower lobe and upper lobe expanded quite nicely. We removed a significant amount of parietal and intrapleural contents. This was also sent for culture. Then, 2-1/2 liters of warm saline was then irrigated and used to flush out the entire chest. I was happy with how the lung expanded. We had no air leak. 266 mg of Exparel mixed with 30 mL of 0.5% bupivacaine without epinephrine and 150 mL of normal saline. It was used to inject all 3 ports. We also used this to do an intercostal block from the 2nd-11th rib. We had negligible blood loss. A 24-Korean chest tube was placed and directed towards the apex. It was sutured in place with heavy silk suture. The incisions were closed with 4-0 Monocryl in a running continuous fashion. She tolerated it quite well. I attest to the content of the Intraoperative Record and any orders documented therein. Any exception s are noted below.
[2017-09-17] MEDS ORDERED: CEFAZOLIN SOD 1 GM VIAL ONE (10:34)
[2017-09-17] MEDS: ACETAMINOPHEN IV 1,000 MG in EMPTY BAG 0 ML IV SCH ×2 (10:50→18:45)
--- NOTE | 2017-09-17 11:36 | Anesthesiology Progress Note ---
Anesthesia Post Op Note Date & Time Sep 17, 2017 at 11:36 Vital Signs Pain Intensity: 4.0 Vital Signs Past 12 Hours Date Time Temp Pulse Resp B/P (MAP) Pulse Ox O2 Delivery O2 Flow Rate FiO2 09/17/17 10:59 37.1 66 18 115/76 (89) 94 Nasal Cannula 5.0 09/17/17 10:35 36.3 68 18 123/76 93 Nasal Cannula 4 09/17/17 10:25 36.3 68 18 123/76 93 Nasal Cannula 4 09/17/17 10:18 83 32 09/17/17 10:18 83 32 94 09/17/17 10:16 122/67 09/17/17 10:15 69 20 122/67 94 Nasal Cannula 4 09/17/17 10:13 69 24 92 09/17/17 10:13 68 24 09/17/17 10:11 115/69 09/17/17 10:08 90 31 93 09/17/17 10:08 92 31 09/17/17 10:06 119/84 09/17/17 10:05 70 20 115/69 93 Nasal Cannula 4 09/17/17 10:03 73 24 09/17/17 10:03 74 24 91 09/17/17 10:01 123/71 09/17/17 09:58 74 29 92 09/17/17 09:58 72 29 09/17/17 09:57 74 25 92 09/17/17 09:57 72 25 09/17/17 09:56 126/69 09/17/17 09:52 36.6 75 24 122/72 (90) 94 Oxymask 4 09/17/17 09:52 71 29 93 09/17/17 09:52 72 29 09/17/17 09:51 122/72 09/17/17 09:47 75 23 09/17/17 09:47 74 23 93 09/17/17 09:46 116/72 09/17/17 09:43 72 24 09/17/17 09:43 72 24 94 09/17/17 09:41 116/83 09/17/17 09:38 78 27 09/17/17 09:38 77 27 88 09/17/17 09:36 118/76 09/17/17 09:33 73 26 94 09/17/17 09:33 73 26 09/17/17 09:32 74 25 09/17/17 09:32 74 25 94 09/17/17 09:31 123/69 09/17/17 09:27 78 25 09/17/17 09:27 75 25 94 09/17/17 09:26 121/74 09/17/17 09:22 82 26 94 09/17/17 09:22 81 26 09/17/17 09:21 121/72 09/17/17 09:17 83 26 09/17/17 09:17 83 26 96 09/17/17 09:16 122/72 09/17/17 09:12 86 31 95 09/17/17 09:12 86 31 09/17/17 09:11 115/79 09/17/17 09:08 122/75 09/17/17 09:07 36.0 93 19 122/75 (83) 96 Oxymask 10 09/17/17 03:30 36.8 105 23 141/85 (103) 92 Room Air Notes Mental Status: alert / awake / arousable, participated in evaluation Pt Amnestic to Procedure: Yes Nausea / Vomiting: adequately controlled Pain: adequately controlled Airway Patency, RR, SpO2: stable & adequate BP & HR: stable & adequate Hydration State: stable & adequate Anesthetic Complications: no major complications apparent
[2017-09-17] MEDS ORDERED: COUGH DROP (SUGAR FREE) LOZ 24 LOZ/1 BOX LOZ ONE (12:49)
[2017-09-17] MEDS: METOCLOPRAMIDE HCL INJ 5 MG/ML 2 ML VIAL IV. SCH ×2 (13:49→21:31)
[2017-09-17] MEDS ORDERED: NURSING DECISION MEDICATION ORDER SCH (14:45)
--- NOTE | 2017-09-17 15:50 | Hospitalist Progress Note ---
Hospitalist Progress Note Date of Service Sep 17, 2017. (Nury Joyner ., JESC) Subjective Pt evaluation today including: conversation w/ patient, physical exam, chart review, lab review, review of studies, review of inpatient medication list Patient seen right after she returned from thoracoscopy. She was drowsy on my exam but states her pain is improved. She did complain of left shoulder pain. She states her breathing feels improved. She does report feeling nauseous but denies vomiting. The patient denies fevers, chills, sweats, chest pain, palpitations, claudication, cough, wheezing, shortness of breath, vomiting, abdominal pain, dysuria, hematuria, urinary retention, paralysis, weakness, numbness and tingling. Additional Comments: See HPI for pertinent positives and negatives. All other systems reviewed and negative. (Nury Joyner ., FERNANDA-C) Objective Vital Signs Date Time Temp Pulse Resp B/P (MAP) Pulse Ox O2 Delivery O2 Flow Rate FiO2 09/17/17 13:00 77 20 128/76 (93) 94 Room Air 4.0 09/17/17 12:00 80 18 117/76 (90) 94 Room Air 4.0 09/17/17 12:00 Room Air 09/17/17 11:56 37.1 80 18 117/76 (90) 94 Nasal Cannula 4.0 09/17/17 10:59 37.1 66 18 115/76 (89) 94 Nasal Cannula 5.0 09/17/17 10:35 36.3 68 18 123/76 93 Nasal Cannula 4 09/17/17 10:25 36.3 68 18 123/76 93 Nasal Cannula 4 09/17/17 10:18 83 32 09/17/17 10:18 83 32 94 09/17/17 10:16 122/67 09/17/17 10:15 69 20 122/67 94 Nasal Cannula 4 09/17/17 10:13 69 24 92 09/17/17 10:13 68 24 09/17/17 10:11 115/69 09/17/17 10:08 90 31 93 09/17/17 10:08 92 31 09/17/17 10:06 119/84 09/17/17 10:05 70 20 115/69 93 Nasal Cannula 4 09/17/17 10:03 73 24 09/17/17 10:03 74 24 91 3/21/18 10:01 123/71 09/17/17 09:58 74 29 92 09/17/17 09:58 72 29 09/17/17 09:57 74 25 92 09/17/17 09:57 72 25 18 09:56 126/69 09/17/17 09:52 36.6 75 24 122/72 (90) 94 Oxymask 4 09/17/17 09:52 71 29 93 09/17/17 09:52 72 29 09/17/17 09:51 122/72 09/17/17 09:47 75 23 09/17/17 09:47 74 23 93 09/17/17 09:46 116/72 09/17/17 09:43 72 24 09/17/17 09:43 72 24 94 09/17/17 09:41 116/83 09/17/17 09:38 78 27 09/17/17 09:38 77 27 88 09/17/17 09:36 118/76 09/17/17 09:33 73 26 94 09/17/17 09:33 73 26 09/17/17 09:32 74 25 09/17/17 09:32 74 25 94 09/17/17 09:31 123/69 09/17/17 09:27 78 25 09/17/17 09:27 75 25 94 09/17/17 09:26 121/74 09/17/17 09:22 82 26 94 09/17/17 09:22 81 26 09/17/17 09:21 121/72 09/17/17 09:17 83 26 09/17/17 09:17 83 26 96 09/17/17 09:16 122/72 09/17/17 09:12 86 31 95 09/17/17 09:12 86 31 09/17/17 09:11 115/79 09/17/17 09:08 122/75 09/17/17 09:07 36.0 93 19 122/75 (83) 96 Oxymask 10 09/17/17 03:30 36.8 105 23 141/85 (103) 92 Room Air 09/16/17 23:30 37.1 95 20 124/79 (94) 96 Nasal Cannula 1.5 09/16/17 20:00 Nasal Cannula 09/16/17 19:26 36.6 105 24 127/78 (94) 91 Room Air 09/16/17 16:00 Room Air (Nury Joyner ., PA-C) Physical Exam Notes: General appearance: +Obese. Well-developed, well-nourished, no apparent distress Head: Normocephalic, atraumatic Eyes: Normal inspection, PERRL, EOMI ENT: Normal ENT inspection, hearing grossly normal, pharynx normal Neck: Supple, no JVD, trachea midline Respiratory/Chest: +Decreased breath sounds L>R, poor respiratory effort, just up from thoracoscopy. Lungs clear to auscultation, no respiratory distress Cardiovascular: +Tachycardic. Regular rhythm, no gallop, no murmur Abdomen/GI: Normal bowel sounds, non-tender, soft Extremities/Musculoskeletal: Normal inspection, no calf tenderness, no pedal edema Neurological/Psych: +Drowsy, just came up from PACU. Normal mood/affect, oriented x 3 Skin: Normal color, warm/dry, no rash (Nury Joyner ., PA-C) Laboratory Results Last 24 Hours Test 09/16/17 21:45 09/17/17 05:49 09/17/17 08:00 White Blood Count 9.84 K/uL Red Blood Count 3.74 M/uL Hemoglobin 11.1 g/dL Hematocrit 33.5 % Mean Corpuscular Volume 89.6 fL Mean Corpuscular Hemoglobin 29.7 pg Mean Corpuscular Hemoglobin Concent 33.1 g/dl RDW Standard Deviation 45.4 fL RDW Coefficient of Variation 13.8 % Platelet Count 228 K/uL Mean Platelet Volume 9.1 fL Sodium Level 136 mmol/L Potassium Level 3.8 mmol/L Chloride Level 103 mmol/L Carbon Dioxide Level 28 mmol/L Anion Gap 6.0 mmol/L Blood Urea Nitrogen 9 mg/dl Creatinine 0.56 mg/dl Est Creatinine Clear Calc Drug Dose 184.0 ml/min Estimated GFR () > 150.0 Estimated GFR (Non- 132.4 BUN/Creatinine Ratio 15.1 Random Glucose 88 mg/dl Calcium Level 8.1 mg/dl Magnesium Level 2.1 mg/dl Pleural Fluid Source LEFT LUNG Pleural Fluid Color RAJAN Pleural Fluid Appearance CLOUDY Pleural Fluid WBC 935 /uL Pleural Fluid RBC 76387 /uL Pleural Fluid Polynuclear WBCs % 57.5 % Pleural Fluid Mononuclear WBCs % 42.5 % (Nury Joyner PA-C) Diagnostic Results Reviewed the following studies and agree with interpretation as follows: CHEST ONE VIEW PORTABLE CLINICAL HISTORY: 22 years-old Female presenting with decortication. TECHNIQUE: Portable upright AP view of the chest was obtained. COMPARISON: 09/12/2017. FINDINGS: Large bore left pleural drain terminates at the left apex. Cardiac silhouette prominence. Pulmonary vascular prominence. Increased hazy bibasilar opacities. Bilateral pleural effusions suggested. No large pneumothorax. Osseous structures normal. Upper abdomen normal. IMPRESSION: 1. Findings suggest volume overload with mild pulmonary edema or less likely aspiration. 2. Small pleural effusions. 3. No pneumothorax. (Nury Joyner .SRAVAN) Assessment and Plan 22 y/o female with a history of ADHD who presents for direct admission from [facility] for progressive SOB. Patient has had long-standing issues with initially URI symptoms leading to symptoms of SOB and pleuritic CP. Suspected empyema, large loculated left pleural effusion--stable - Admit to telemetry. No acute events overnight. Pt in sinus rhythm with HR in 80s - CT chest compared to 09/11 study shows significant increase in left pleural effusion, does appear to be possibly loculated upon my review. Negative for PE. - Family h/o PE, Factor V and Lupus, pt has tested negative for these - Thoracic surgery consulted, appreciate recs: Thoracoscopy with evacuation of pleural fluid and partial decortication of LLL performed. - Pleural fluid rajan, cloudy. Studies/cultures pending - Zosyn and Zithromax IV for broad coverage - Pain control with Toradol and Percocet, block as above during thoracoscopy - Pt very anxious regarding procedure, Ativan 1 mg PO q8h prn ADHD--stable -Continue Concerta ER 36 mg PO qd, Ritalin 10 mg PO qd prn -Regimen confirmed w/pt's pharmacy DVT prophylaxis -Chemical ppx on hold Code Status -Level I, FULL RESUSCITATION STATUS (Nury Joyner PA-C) PA Physician Supervision Note: I interviewed and examined the patient. Discussed with Nury Joyner PAC and agree with findings and plan as documented in the note. Any exceptions or clarifications are listed here: None Patient is status post her VATS procedure with drainage of what looks to be a empyema she still having some left sided pleuritic pain and appears appears slightly sedated from the anesthesia or procedure Vital signs 36 8 pulse is 105 respiration rate 23 BP is 141/83 she has about 160 cc of serosanguineous fluid in her chest tube drainage canister with a cough there does not appear to be any air leak at this time her left lung is with good air movement but decreased breath sounds at the bases her chest tube site is clean dry and intact but slightly tender to palpation 22-year-old female admitted with persistent hypoxia and found to have a left pleural effusion which appears to be consistent with an empyema from previous pulmonary infection this is status post drainage we are pending analysis of her fluid. She maintains and Zofran antibiotic therapy Documented By: Rigoberto Rosenthal (Rigoberto Rosenthal M.D.)
[2017-09-17] MEDS: OXYCODONE HCL IR 5 MG TAB (IMMEDIATE RELEASE) PO PRN (17:29)
[2017-09-17] MEDS: AZITHROMYCIN IV 500 MG in DEXTROSE 5% 250ML 250 ML IV SCH (19:34)
[2017-09-17] MEDS: MoRPHine SULFATE 2 MG/ML CARP IV PRN (21:41)
[2017-09-18] VITALS (7 sets, daily range): BP systolic 114–142; BP diastolic 70–82; PULSE 75–93; TEMP 36.4–37.5; O2SAT 92–100
[2017-09-18] MEDS: MoRPHine SULFATE 2 MG/ML CARP IV PRN ×11 (02:17→23:11)
[2017-09-18] MEDS: ACETAMINOPHEN IV 1,000 MG in EMPTY BAG 0 ML IV SCH ×2 (02:21→08:09)
[2017-09-18] MEDS: PIPERACILL/TAZOBAC IV 3.375 GM in DEXTROSE 5% 100ML 100 ML IV SCH ×2 (05:06→13:04)
[2017-09-18] MEDS: KETOROLAC TROMETHAMINE 15 MG/ML VIAL IV SCH ×4 (06:08→22:40)
[2017-09-18] MEDS: METOCLOPRAMIDE HCL INJ 5 MG/ML 2 ML VIAL IV. SCH (06:08)
[2017-09-18 06:33] LABS: HEMATOCRIT 31.6 % (37-47); HEMOGLOBIN 10.7 g/dL (12.0-16.0); MEAN CORPUSCULAR HEMOGLOBIN 30.5 pg (25-34); MEAN CORPUSCULAR HGB CONC 33.9 g/dl (32-36); MEAN PLATELET VOLUME 8.6 fL (7.4-10.4); PLATELET COUNT 225 K/uL (130-400); RED CELL DISTRIBUTION WIDTH CV 13.9 % (11.5-14.5); RED CELL DISTRIBUTION WIDTH SD 45.8 fL (36.4-46.3); WHITE BLOOD COUNT 12.18 K/uL (4.8-10.8)
--- NOTE | 2017-09-18 06:56 | DIAGNOSTIC IMAGING REPORT ---
CHEST ONE VIEW PORTABLE CLINICAL HISTORY: 22 years-old Female presenting with decortication . TECHNIQUE: Portable upright AP view of the chest was obtained. COMPARISON: 09/17/2017. FINDINGS: Large bore left pleural drain remains at the left apex. Cardiac silhouette top normal in size. Slight decrease in pulmonary vascular prominence. Persistent though slight decrease in bibasilar hazy opacities. No large pneumothorax. Osseous structures normal. External leads overlie the upper abdomen degrading evaluation. IMPRESSION: 1. Slight decrease volume overload and decreased bibasilar consolidation or edema. 2. Small layering pleural effusions are difficult to exclude. 3. No pneumothorax. Electronically signed by: Jeremy Croft M.D. 09/18/2017 6:55 AM Dictated Date/Time: 09/18/2017 6:53 AM
[2017-09-18 07:03] LABS: CALCIUM 8.2 mg/dl (8.5-10.1); CREATININE 0.63 mg/dl (0.60-1.20); POTASSIUM 3.8 mmol/L (3.5-5.1)
[2017-09-18] MEDS: ENOXAPARIN 40 MG/0.4 ML SYR SQ SCH (08:12)
[2017-09-18] MEDS: DOCUSATE SODIUM 100 MG CAP PO SCH ×2 (08:12→20:47)
--- NOTE | 2017-09-18 10:15 | SURGERY PROGRESS NOTE ---
DATE: 09/18/2017 Ms. Jacques underwent a thoracoscopy with decortication yesterday. She looks great. She is much improved and in fact is being weaned from her oxygen quite nicely. She only drained 30 mL and I thought her x-ray showed better aeration in the left lower lobe. We are going to stop her IVs and her monitor. I really want her to get up and walk. I will probably pull her chest tube out and let her go home tomorrow. All of her cultures are negative thus far.
[2017-09-18] MEDS: OXYCODONE HCL IR 5 MG TAB (IMMEDIATE RELEASE) PO PRN ×2 (11:36→18:04)
[2017-09-18] MEDS: ACETAMINOPHEN 325 MG TAB PO SCH ×2 (13:04→19:51)
--- NOTE | 2017-09-18 13:38 | Hospitalist Progress Note ---
Hospitalist Progress Note Date of Service Sep 18, 2017. (Nury Joyner .JESC) Subjective Pt evaluation today including: conversation w/ patient, physical exam, chart review, lab review, review of studies, review of inpatient medication list Pain: 5/10 pain at chest tube site PO Intake: Tolerating PO diet Voiding: no voiding problems Patient reports feeling better. Her breathing is much improved and she is back on room air. She does complain of 5/10 aching pain localized right at the chest tube but denies any pleuritic pain. She has nausea at times with the pain meds but otherwise feels good. She is to ambulate in the hallway today per Dr. Belle's instructions. The patient denies fevers, chills, sweats, chest pain, palpitations, claudication, cough, wheezing, shortness of breath, vomiting, abdominal pain, dysuria, hematuria, urinary retention, paralysis, weakness, numbness and tingling. Additional Comments: See HPI for pertinent positives and negatives. All other systems reviewed and negative. (Nury Joyner PA-C) Objective Vital Signs Date Time Temp Pulse Resp B/P (MAP) Pulse Ox O2 Delivery O2 Flow Rate FiO2 09/18/17 12:00 Room Air 3.0 09/18/17 11:03 36.5 86 18 142/77 (98) 92 Room Air 09/18/17 08:00 Room Air 3.0 09/18/17 07:16 37.0 89 18 126/82 (97) 99 Nasal Cannula 4.0 09/18/17 04:00 Nasal Cannula 4.0 09/18/17 03:30 37.2 75 20 119/79 (92) 100 Nasal Cannula 4.0 09/17/17 23:59 Nasal Cannula 4.0 09/17/17 23:30 37.3 99 18 124/74 (91) 96 Nasal Cannula 4.0 09/17/17 20:28 37.2 87 16 113/77 (89) 97 Nasal Cannula 4.0 09/17/17 20:00 93 Nasal Cannula 4.0 09/17/17 16:11 37.1 99 18 130/76 (94) 93 Nasal Cannula 4.0 09/17/17 16:00 94 Nasal Cannula 2.0 (Nury Joyner PA-C) Physical Exam Notes: General appearance: +Obese. Well-developed, well-nourished, no apparent distress Head: Normocephalic, atraumatic Eyes: Normal inspection, PERRL, EOMI ENT: Normal ENT inspection, hearing grossly normal, pharynx normal Neck: Supple, no JVD, trachea midline Respiratory/Chest: +Decreased breath sounds L>R but improved from yesterday, improved respiratory effort. Lungs clear to auscultation, no respiratory distress Cardiovascular: Regular rate & rhythm, no gallop, no murmur Abdomen/GI: Normal bowel sounds, non-tender, soft Extremities/Musculoskeletal: Normal inspection, no calf tenderness, no pedal edema Neurological/Psych: Alert, normal mood/affect, oriented x 3 Skin: Normal color, warm/dry, no rash (Nury Joyner ., PA-C) Laboratory Results Last 24 Hours Test 09/18/17 06:22 White Blood Count 12.18 K/uL Red Blood Count 3.51 M/uL Hemoglobin 10.7 g/dL Hematocrit 31.6 % Mean Corpuscular Volume 90.0 fL Mean Corpuscular Hemoglobin 30.5 pg Mean Corpuscular Hemoglobin Concent 33.9 g/dl RDW Standard Deviation 45.8 fL RDW Coefficient of Variation 13.9 % Platelet Count 225 K/uL Mean Platelet Volume 8.6 fL Sodium Level 137 mmol/L Potassium Level 3.8 mmol/L Chloride Level 103 mmol/L Carbon Dioxide Level 27 mmol/L Anion Gap 7.0 mmol/L Blood Urea Nitrogen 10 mg/dl Creatinine 0.63 mg/dl Est Creatinine Clear Calc Drug Dose 162.6 ml/min Estimated GFR () 147.6 Estimated GFR (Non- 127.3 BUN/Creatinine Ratio 16.2 Random Glucose 97 mg/dl Calcium Level 8.2 mg/dl Magnesium Level 2.1 mg/dl (Nury Joyner ., PA-C) Diagnostic Results Reviewed the following studies and agree with interpretation as follows: CHEST ONE VIEW PORTABLE CLINICAL HISTORY: 22 years-old Female presenting with decortication . TECHNIQUE: Portable upright AP view of the chest was obtained. COMPARISON: 09/17/2017. FINDINGS: Large bore left pleural drain remains at the left apex. Cardiac silhouette top normal in size. Slight decrease in pulmonary vascular prominence. Persistent though slight decrease in bibasilar hazy opacities. No large pneumothorax. Osseous structures normal. External leads overlie the upper abdomen degrading evaluation. IMPRESSION: 1. Slight decrease volume overload and decreased bibasilar consolidation or edema. 2. Small layering pleural effusions are difficult to exclude. 3. No pneumothorax. (Nury Joyner ., PANenaC) Assessment and Plan 22 y/o female with a history of ADHD who presents for direct admission from [facility] for progressive SOB. Patient has had long-standing issues with initially URI symptoms leading to symptoms of SOB and pleuritic CP. Suspected empyema, large loculated left pleural effusion--improving - Admit to telemetry. No acute events overnight. Pt in sinus rhythm with HR in 80s - CT chest compared to 09/11 study shows significant increase in left pleural effusion, does appear to be possibly loculated upon my review. Negative for PE. - Family h/o PE, Factor V and Lupus, pt has tested negative for these - Thoracic surgery consulted, appreciate recs: Drained 30 mL, CXR improved. Will stop IV Tylenol and fiscal technician. Have her ambulate. Likely pull chest tube out tomorrow and let her go home. - Pleural fluid rajan, cloudy. Studies/cultures negative so far. Pathology pending - Repeat CXR improved, shows decreased edema - On room air, denies SOB - Will d/c Zosyn, continue azithromycin, converted to PO. Day #4 - Pain control with Toradol and Percocet, block as above during thoracoscopy - Pt very anxious regarding procedure, Ativan 1 mg PO q8h prn ADHD--stable -Continue Concerta ER 36 mg PO qd, Ritalin 10 mg PO qd prn -Regimen confirmed w/pt's pharmacy DVT prophylaxis -Chemical ppx on hold Code Status -Level I, FULL RESUSCITATION STATUS Dispo -Anticipate d/c tomorrow (Nury Joyner ., FERNANDA-C) PA Physician Supervision Note: I interviewed and examined the patient. Discussed with Nury Joyner PAC and agree with findings and plan as documented in the note. Any exceptions or clarifications are listed here: None Patient has been doing well she has moved from telemetry floor anticipating removing her chest tube in 1 day she is currently on Zosyn therapy will likely transition to Augmentin white count and hemoglobin have been stable Temp 37 pulse 89 respiration 18 BP 126/82 lungs show good air movement on the left side she is pain at the chest tube site Patient is an empyema which has been drained by CT surgery with hopeful removal of chest tube in the morning final fluid analysis is pending and we will plan on antibiotic course after discharge Documented By: Rigoberto Rosenthal (Rigoberto Rosenthal M.D.)
[2017-09-18] MEDS: ONDANSETRON INJ 2 MG/ML 2 ML VIAL IV PRN (18:05)
[2017-09-18] MEDS: AZITHROMYCIN 250 MG TAB PO SCH (19:50)
[2017-09-19] MEDS ORDERED: TRAMADOL HCL 50 MG TAB PO SCH
[2017-09-19] MEDS ORDERED: LORAZEPAM 1 MG TAB PO SCH
[2017-09-19] MEDS: MoRPHine SULFATE 2 MG/ML CARP IV PRN ×9 (00:12→19:59)
[2017-09-19] MEDS: ACETAMINOPHEN 325 MG TAB PO SCH ×4 (01:42→19:59)
[2017-09-19] MEDS: KETOROLAC TROMETHAMINE 15 MG/ML VIAL IV SCH ×4 (04:23→22:35)
--- NOTE | 2017-09-19 07:11 | DIAGNOSTIC IMAGING REPORT ---
CHEST ONE VIEW PORTABLE HISTORY: effusion COMPARISON: Chest 09/18/2017. FINDINGS: Left-sided chest tube terminates in the left lung apex. No definite pneumothorax. Left pleural effusion and bibasilar densities have improved. The heart remains mildly enlarged. IMPRESSION: 1. Left-sided chest tube is unchanged in position. No pneumothorax. 2. Interval improvement in the bibasilar airspace opacities and small left pleural effusion. Electronically signed by: Simón Pina M.D. 09/19/2017 7:10 AM Dictated Date/Time: 09/19/2017 7:08 AM
[2017-09-19 07:27] VITALS: BP 114/75; PULSE 112; TEMP 37.3; O2SAT 91
[2017-09-19 07:35] VITALS: PULSE 101
--- NOTE | 2017-09-19 07:48 | Consultant Recommendations ---
[facility] Recommendations Date of Service Sep 19, 2017. [facility] Recommendations Pulmonary Follow up with Cyndi Quinones PA-C 09/29/17 at 1:00pm
[2017-09-19] MEDS: OXYCODONE HCL IR 5 MG TAB (IMMEDIATE RELEASE) PO PRN ×3 (08:07→21:02)
[2017-09-19 08:22] LABS: HEMATOCRIT 32.1 % (37-47); HEMOGLOBIN 10.7 g/dL (12.0-16.0); MEAN CELL VOLUME 90.9 fL (80-100); MEAN CORPUSCULAR HEMOGLOBIN 30.3 pg (25-34); MEAN CORPUSCULAR HGB CONC 33.3 g/dl (32-36); MEAN PLATELET VOLUME 8.4 fL (7.4-10.4); PLATELET COUNT 249 K/uL (130-400); RED CELL DISTRIBUTION WIDTH CV 14.2 % (11.5-14.5); RED CELL DISTRIBUTION WIDTH SD 46.9 fL (36.4-46.3); WHITE BLOOD COUNT 9.38 K/uL (4.8-10.8)
[2017-09-19] MEDS: LORAZEPAM 1 MG TAB PO PRN (08:40)
[2017-09-19 08:52] LABS: BLOOD UREA NITROGEN 10 mg/dl (7-18); CALCIUM 8.5 mg/dl (8.5-10.1); CARBON DIOXIDE 28 mmol/L (21-32); CREATININE 0.58 mg/dl (0.60-1.20); GLUCOSE 89 mg/dl (70-99); POTASSIUM 3.7 mmol/L (3.5-5.1); SODIUM 136 mmol/L (136-145)
[2017-09-19] MEDS ORDERED: NURSING VERBAL MED ORDER ONE (09:00)
[2017-09-19] MEDS ORDERED: KETOROLAC TROMETHAMINE 15 MG/ML VIAL IV ONE (09:15)
--- NOTE | 2017-09-19 09:22 | DIAGNOSTIC IMAGING REPORT ---
CHEST ONE VIEW PORTABLE HISTORY: 22 years-old Female tube removal status post removal of left-sided chest tube COMPARISON: Chest radiograph of same day at 6:45 AM TECHNIQUE: Portable AP view of the chest FINDINGS: Cardiac silhouette is again enlarged. The patient is slightly rotated to the right. Status post removal of the left-sided chest tube without pneumothorax identified. Mild pulmonary vascular congestion with unchanged small left pleural effusion and bibasilar consolidative opacities. There may also be a trace right pleural effusion. Bones of the chest appear grossly intact. IMPRESSION: 1. Status post removal of left-sided chest tube without pneumothorax identified. 2. Cardiomegaly with mild pulmonary vascular congestion. 3. Small left pleural effusion with unchanged bibasilar consolidative opacities. The above report was generated using voice recognition software. It may contain grammatical, syntax or spelling errors. Electronically signed by: Hector Nunez M.D. 09/19/2017 9:21 AM Dictated Date/Time: 09/19/2017 9:19 AM
[2017-09-19] MEDS: ONDANSETRON INJ 2 MG/ML 2 ML VIAL IV PRN (09:26)
[2017-09-19] MEDS: DOCUSATE SODIUM 100 MG CAP PO SCH ×2 (09:37→21:02)
[2017-09-19] MEDS: AZITHROMYCIN 250 MG TAB PO SCH (09:37)
[2017-09-19] MEDS: LIDODERM (LIDOCAINE) PATCH 5% TD SCH (09:38)
[2017-09-19] MEDS: ENOXAPARIN 40 MG/0.4 ML SYR SQ SCH (13:56)
[2017-09-19] MEDS ORDERED: AMOX875T PO (14:29)
[2017-09-19] MEDS ORDERED: ULT/50 PO (14:29)
[2017-09-19] MEDS ORDERED: LORA-741 PO (14:29)
[2017-09-19] MEDS ORDERED: TRAMADOL HCL 50 MG HOME PACK PO ONE (14:30)
[2017-09-19] MEDS ORDERED: ATIVAN 1MG HOMEPACK PO ONE (14:30)
--- NOTE | 2017-09-19 14:53 | SURGERY PROGRESS NOTE ---
DATE: 09/19/2017 Ms. Jacques was seen today on 09/19/2017. She is postoperative day #2 status post her thoracoscopic drainage of an empyema with decortication. Final pathology did come back. 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 It is also important to note that we did not grow any bacteria from the fluid; however, we did grow some from the tissue. This shows gram-positive cocci and sensitivities are pending. The patient has, of course, defervesced since her surgery. She is on room air. Her white count is 9380. She is on room air with saturations from 91-96%. Heart rate running anywhere from 70s to the 100s. I thought her x-ray looked quite good today after we pulled her chest tube. She actually has greatly improved. We will get the final identification of these gram-positive cocci and I will see her back in the office in 3-4 days. Her incision looked quite good after we pulled the chest tube. I have told the patient to call me should she run into any problems. SHAN
[2017-09-19 15:04] VITALS: BP 132/79; PULSE 98; TEMP 37.5; O2SAT 92
[2017-09-19 15:25] VITALS: BP_SYST 118; BP_SYST 132; BP_DIAS 68; BP_DIAS 79; PULSE 67; PULSE 98; TEMP 37.2; TEMP 37.5; O2SAT 92; O2SAT 94
--- NOTE | 2017-09-19 16:14 | Hospitalist Progress Note ---
Hospitalist Progress Note Date of Service Sep 19, 2017. (Nury Joyner ., FERNANDA-C) Subjective Pt evaluation today including: conversation w/ patient, physical exam, chart review, lab review, review of studies, review of inpatient medication list Patient reports feeling better after chest tube removed, but still complains of 5/10 pain where the tube was. She denies any SOB. She states that she feels weak. She did have some dyspnea on exertion while ambulating yesterday and has to take it slowly. I discussed with her the possibility of going home today, but she voiced concerns. She states she lives on a third floor apartment w/o an elevator is concerned about her ability to move around. I advised her to ambulate more in the hallway today to see how she feels. The patient denies fevers, chills, sweats, palpitations, claudication, cough, wheezing, shortness of breath at rest, nausea, vomiting, abdominal pain, dysuria, hematuria, urinary retention, paralysis, weakness, numbness and tingling. Messaged by nursing later after patient had been up walking. Patient really wants to stay another night to make sure she is well enough as she will mostly be home by herself. Additional Comments: See HPI for pertinent positives and negatives. All other systems reviewed and negative. (Nury Joyner ., PA-C) Objective Vital Signs Date Time Temp Pulse Resp B/P (MAP) Pulse Ox O2 Delivery O2 Flow Rate FiO2 09/19/17 15:25 37.5 98 18 92 Room Air 09/19/17 15:04 37.5 98 18 132/79 (96) 92 Room Air 09/19/17 07:35 101 09/19/17 07:30 Room Air 09/19/17 07:27 37.3 112 16 114/75 (88) 91 Room Air 09/18/17 23:15 Room Air 09/18/17 23:03 37.5 78 20 114/74 (87) 96 Room Air 09/18/17 16:12 36.4 88 18 116/75 (89) 93 Room Air (Nury Joyner ., FERNANDA-C) Physical Exam Notes: General appearance: +Obese. Well-developed, well-nourished, no apparent distress Head: Normocephalic, atraumatic Eyes: Normal inspection, PERRL, EOMI ENT: Normal ENT inspection, hearing grossly normal, pharynx normal Neck: Supple, no JVD, trachea midline Respiratory/Chest: +Decreased breath sounds L>R but continues to improve. Inspected wounds, healing well. Lungs clear to auscultation, no respiratory distress Cardiovascular: Regular rate & rhythm, no gallop, no murmur Abdomen/GI: Normal bowel sounds, non-tender, soft Extremities/Musculoskeletal: Normal inspection, no calf tenderness, no pedal edema Neurological/Psych: Alert, normal mood/affect, oriented x 3 Skin: Normal color, warm/dry, no rash (Nruy Joyner ., PA-C) Laboratory Results Last 24 Hours Test 09/19/17 07:57 White Blood Count 9.38 K/uL Red Blood Count 3.53 M/uL Hemoglobin 10.7 g/dL Hematocrit 32.1 % Mean Corpuscular Volume 90.9 fL Mean Corpuscular Hemoglobin 30.3 pg Mean Corpuscular Hemoglobin Concent 33.3 g/dl RDW Standard Deviation 46.9 fL RDW Coefficient of Variation 14.2 % Platelet Count 249 K/uL Mean Platelet Volume 8.4 fL Sodium Level 136 mmol/L Potassium Level 3.7 mmol/L Chloride Level 102 mmol/L Carbon Dioxide Level 28 mmol/L Anion Gap 6.0 mmol/L Blood Urea Nitrogen 10 mg/dl Creatinine 0.58 mg/dl Est Creatinine Clear Calc Drug Dose 176.6 ml/min Estimated GFR () > 150.0 Estimated GFR (Non- 130.8 BUN/Creatinine Ratio 16.5 Random Glucose 89 mg/dl Calcium Level 8.5 mg/dl (Nury Joyner ., PA-C) Diagnostic Results Reviewed the following studies and agree with interpretation as follows: CHEST ONE VIEW PORTABLE HISTORY: 22 years-old Female tube removal status post removal of left-sided chest tube COMPARISON: Chest radiograph of same day at 6:45 AM TECHNIQUE: Portable AP view of the chest FINDINGS: Cardiac silhouette is again enlarged. The patient is slightly rotated to the right. Status post removal of the left-sided chest tube without pneumothorax identified. Mild pulmonary vascular congestion with unchanged small left pleural effusion and bibasilar consolidative opacities. There may also be a trace right pleural effusion. Bones of the chest appear grossly intact. IMPRESSION: 1. Status post removal of left-sided chest tube without pneumothorax identified. 2. Cardiomegaly with mild pulmonary vascular congestion. 3. Small left pleural effusion with unchanged bibasilar consolidative opacities. (Nury Joyner ., JESC) Assessment and Plan 22 y/o female with a history of ADHD who presents for direct admission from [facility] for progressive SOB. Patient has had long-standing issues with initially URI symptoms leading to symptoms of SOB and pleuritic CP. Suspected empyema, large loculated left pleural effusion--improving - Admit to telemetry. No acute events overnight. Pt in sinus rhythm with HR in 80s - CT chest compared to 09/11 study shows significant increase in left pleural effusion, does appear to be possibly loculated upon my review. Negative for PE. - Family h/o PE, Factor V and Lupus, pt has tested negative for these - Thoracic surgery consulted, appreciate recs: Chest tube removed, clear for discharge from surgical standpoint. Recommend 3 days Augmentin at discharge. - Pleural fluid rajan, cloudy. Pathology negative for malignancy, shows acute and chronic inflammation. Pleural fluid cultures negative so far, but lung tissue shows GPC, sensitivities pending - Repeat CXR 09/19 continues to improve - On room air, denies SOB - Will d/c Zosyn, continue azithromycin, converted to PO. Day #5 - Pain control with Toradol and Percocet, block as above during thoracoscopy - Pt very anxious regarding procedure, Ativan 1 mg PO q8h prn ADHD--stable -Continue Concerta ER 36 mg PO qd, Ritalin 10 mg PO qd prn -Regimen confirmed w/pt's pharmacy DVT prophylaxis -Chemical ppx on hold Code Status -Level I, FULL RESUSCITATION STATUS Dispo -Will monitor one more day, hopefully d/c tomorrow (Nury Joyner ., PA-C) PA Physician Supervision Note: I interviewed and examined the patient. Discussed with Nury Joyner PAC and agree with findings and plan as documented in the note. Any exceptions or clarifications are listed here: None Patient feels fatigued and tired after having her chest tube removed and is concerned about returning home when she is in her own apartment without local family. Patient's vital signs are stable she has been released by surgery as her post chest tube evaluation does not reveal any concern for pneumothorax reaccumulation. Discussion of antibiotics with surgical team feels she is to go home on Augmentin patient has significant issues with anxiety and she will go home on Ativan as needed for anxiety and trazodone for sleep. Patient will follow [facility] when she goes home next Temperature 37 3 pulse 101 respiration 16 BP 114/75 she is maintaining good oxygen saturations on room air which is unlike what she was doing when she presented Her lung exam is splinting on the left side however there is some mild tenderness around the chest tube site is otherwise has good air movement no wheezes or focal or loss Patient is here status post drainage of empyema from a outpatient treated pneumonia patient is doing very well will anticipate discharge in the next few days Documented By: Rigoberto Rosenthal (Rigoberto Rosenthal M.D.)
[2017-09-19] MEDS ORDERED: AMOXICILLIN/CLAVULANATE TAB 875 MG TAB PO SCH ×2 (17:45)
[2017-09-19 22:45] VITALS: BP 114/75; PULSE 97; TEMP 37.7; O2SAT 93
[2017-09-20] MEDS: ACETAMINOPHEN 325 MG TAB PO SCH ×3 (01:30→07:39)
[2017-09-20 01:34] VITALS: TEMP 36.9
[2017-09-20] MEDS: OXYCODONE HCL IR 5 MG TAB (IMMEDIATE RELEASE) PO PRN (04:05)
[2017-09-20] MEDS: KETOROLAC TROMETHAMINE 15 MG/ML VIAL IV SCH ×2 (04:58→11:00)
[2017-09-20] MEDS: MoRPHine SULFATE 2 MG/ML CARP IV PRN (06:37)
[2017-09-20 07:15] VITALS: BP 118/68; PULSE 67; TEMP 37.2; O2SAT 94
[2017-09-20 07:58] LABS: HEMATOCRIT 33.4 % (37-47); HEMOGLOBIN 11.1 g/dL (12.0-16.0); MEAN CELL VOLUME 90.5 fL (80-100); MEAN CORPUSCULAR HEMOGLOBIN 30.1 pg (25-34); MEAN CORPUSCULAR HGB CONC 33.2 g/dl (32-36); MEAN PLATELET VOLUME 8.2 fL (7.4-10.4); PLATELET COUNT 254 K/uL (130-400); RED CELL DISTRIBUTION WIDTH CV 13.7 % (11.5-14.5); RED CELL DISTRIBUTION WIDTH SD 45.4 fL (36.4-46.3); WHITE BLOOD COUNT 8.75 K/uL (4.8-10.8)
[2017-09-20] MEDS: ONDANSETRON INJ 2 MG/ML 2 ML VIAL IV PRN (08:29)
[2017-09-20 08:38] LABS: CALCIUM 8.6 mg/dl (8.5-10.1); CREATININE 0.63 mg/dl (0.60-1.20); POTASSIUM 3.7 mmol/L (3.5-5.1)
--- NOTE | 2017-09-20 08:46 | Discharge Instructions ---
Discharge Instructions Date of Service Sep 20, 2017. Admission Reason for Admission: Pleuritic Chest Pain Discharge Discharge Diagnosis / Problem: empyema, s/p draining Discharge Goals Goal(s): Diagnostic testing, Therapeutic intervention Activity Recommendations Activity Limitations: as noted below Lifting Limitations: gradually increase as tolerated . Current Hospital Diet Patient's current hospital diet: Regular Diet Discharge Diet Recommended Diet: Regular Diet Procedures Procedures Performed: Left Thoracoscopy, Evacuation of Pleural Effusion, Partial Decortication Left Lower Lobe Pending Studies Studies pending at discharge: no Medical Emergencies . Who to Call and When: Medical Emergencies: If at any time you feel your situation is an emergency, please call 911 immediately. . Non-Emergent Contact Non-Emergency issues call your: Primary Care Provider Call Non-Emergent contact if: temperature is above 101, your pain is unusual for you . . "Provider Documentation" section prepared by Rigoberto Rosenthal. . Transfer And Pumphouse Operator Chief Recommendations Transfer And Pumphouse Operator Chief Recommendations: Pulmonary Follow up with Cyndi Quinones PA-C 09/29/17 at 1:00pm
[2017-09-20] MEDS: LIDODERM (LIDOCAINE) PATCH 5% TD SCH (10:06)
[2017-09-20] MEDS: DOCUSATE SODIUM 100 MG CAP PO SCH (10:06)
[2017-09-20] MEDS: AZITHROMYCIN 250 MG TAB PO SCH (10:07)
[2017-09-20] MEDS: ENOXAPARIN 40 MG/0.4 ML SYR SQ SCH (10:08)
--- NOTE | 2017-09-20 16:19 | Discharge Summary ---
Discharge Summary Date of Service Sep 20, 2017. Discharge Summary Admission Date: Sep 15, 2017 at 21:27 Discharge Date: Sep 20, 2017 Discharge Disposition: Home Principal Diagnosis: empyema with VATS drainage and chest tube Consultations: Dr Belle Medication Reconciliation New Medications: Amoxicillin & Pot Clavulanate (Augmentin 875-125 mg) 1 Tab Tab 875 MG PO BID for 14 Days, #14 TAB Lorazepam (Ativan) 0.5 Mg Tab 0.5 MG PO TID PRN for Anxiety, #9 TAB Tramadol Hcl (Ultram) 50 Mg Tab 50 MG PO Q4H PRN for Pain or Fever, #18 TAB PRN PAIN Continued Medications: Amoxicillin & Pot Clavulanate (Augmentin 875-125 mg) 1 Tab Tab 875 MG PO BID for 10 Days, #20 TABS Ibuprofen Tab (Motrin) 800 Mg Tab 800 MG PO Q6H PRN for Pain for 30 Days, #120 TABS Methylphenidate (Ritalin) 10 Mg Tab 10 MG PO DAILY PRN for adhd, TAB Methylphenidate Hcl (Concerta) 36 Mg Tab 36 MG PO DAILY, TAB Multivitamin (Multivitamin) Tab 1 TAB PO DAILY, TAB Ondansetron Hcl (Zofran) 8 Mg Tab Unknown Dose PO PRN for Nausea, TAB Discontinued Medications: Lidocaine (Lidocaine) 1 Patch Tdsy 5 % TD DAILY, #30 PATCH Oxycodone/Acetaminophen 5MG/325MG (Percocet 5MG/325MG) Tab 1-2 TAB PO Q4H PRN for Pain, #14 TAB Prednisone (Prednisone) 20 Mg Tab 20 MG PO DAILY, TAB TAKE FOR 5 DAYS ON DAY 4 Discharge Exam Review of Systems: Constitutional: No fever, No chills Respiratory: + dyspnea on exertion, No cough, No sputum, No dyspnea at rest Cardiovascular: No chest pain, No orthopnea, No edema, No claudication Physical Exam: General Appearance: WD/WN, no apparent distress Eyes: normal inspection, sclerae normal Neck: supple, no JVD Respiratory/Chest: chest non-tender, lungs clear, normal breath sounds Hospital Course 22 y/o female with a history of ADHD who presents for direct admission from [facility] for progressive SOB. Patient has had long-standing issues with initially URI symptoms leading to symptoms of SOB and pleuritic CP. Empyema, large loculated left pleural effusion--improving - CT chest. Negative for PE. - Family h/o PE, Factor V and Lupus, pt has tested negative for these - Thoracic surgery consulted, Recommend 3 days Augmentin at discharge. - Pleural fluid rajan, cloudy. Pathology negative for malignancy, shows acute and chronic inflammation. Pleural fluid cultures negative - On room air, denies SOB ADHD--stable Concerta ER 36 mg PO qd, Ritalin 10 mg PO qd prn will follow up with [facility] this week Documented By: Rigoberto Rosenthal Total Time Spent: Greater than 30 minutes This includes examination of the patient, discharge planning, medication reconciliation, and communication with other providers. Discharge Instructions Please refer to the electronic Patient Visit Report (Discharge Instructions) for additional information.
== END 2017-09-20 12:25 | disposition home or self-care (01) | DRG 165 ==
LOC: C.2T 12:33 → OBSVTOIN 21:27 → ENRESERV 09-18 13:41 → C.MSN 09-18 14:39
PROVIDERS: ADMIT Internal Medicine; ATTEND Internal Medicine
PROC: 0B9P30Z Drainage of Left Pleura with Drainage Device, Percutaneous Approach (ICD-10-PCS; principal; 2017-09-17 07:30)
PROC: 0BCJ4ZZ Extirpation of Matter from Left Lower Lung Lobe, Percutaneous Endoscopic Approach (ICD-10-PCS; principal; 2017-09-17 07:30)
PROC: 0B9P4ZX Drainage of Left Pleura, Percutaneous Endoscopic Approach, Diagnostic (ICD-10-PCS; principal; 2017-09-17 07:30)
DX: J86.9 Pyothorax without fistula (principal); B96.89 Other specified bacterial agents as the cause of diseases classified elsewhere; F90.9 Attention-deficit hyperactivity disorder, unspecified type; Z79.899 Other long term (current) drug therapy; Z87.01 Personal history of pneumonia (recurrent); Z91.040 Latex allergy status; Z82.49 Family history of ischemic heart disease and other diseases of the circulatory system; Z83.2 Family history of diseases of the blood and blood-forming organs and certain disorders involving the immune mechanism; Z82.69 Family history of other diseases of the musculoskeletal system and connective tissue

== ENCOUNTER → 2017-09-25 | Outpatient (CLI) | payer OTHER ==
[~2017-09-25] MED LIST changes: -LDDP5 TD; -LEVO1TAB35 PO; +LORA-741 PO; -OXYC-57 PO; -PRED20TA PO; +ULT/50 PO
--- NOTE | 2017-09-25 13:53 | DIAGNOSTIC IMAGING REPORT ---
CHEST 2 VIEWS ROUTINE CLINICAL HISTORY: EMPYEMA (J86.9), PLEURAL EFFUSION (J90) postoperative evaluation COMPARISON STUDY: 09/19/2017 FINDINGS: Considerable improvement in aeration left lung base. Mild residual atelectasis. Right lung remains clear. IMPRESSION: Considerable improvement in aeration left lung base. No evidence for pneumothorax. The above report was generated using voice recognition software. It may contain grammatical, syntax or spelling errors. Electronically signed by: Melchor Giron M.D. 09/25/2017 1:52 PM Dictated Date/Time: 09/25/2017 1:51 PM
== END | disposition home or self-care (01) ==
LOC: C.LAB1850 13:31
PROVIDERS: ATTEND Surgery
DX: J90 Pleural effusion, not elsewhere classified (principal); J86.9 Pyothorax without fistula

== ENCOUNTER → 2017-10-30 | Outpatient (CLI) | payer OTHER ==
[~2017-10-30] MED LIST changes: -AMOX875T PO; -IBUP-1451 PO; -LORA-741 PO
--- NOTE | 2017-10-30 10:07 | DIAGNOSTIC IMAGING REPORT ---
CHEST 2 VIEWS ROUTINE HISTORY: 22 years-old Female J90 Pleural [id number] Empyema follow-up study in a patient with pleural effusion and recent thoracentesis COMPARISON: Chest radiographs 09/25/2017 TECHNIQUE: PA and lateral views of the chest FINDINGS: There is persistent mild left hemidiaphragmatic elevation with blunting of left costophrenic angle. Hazy subsegmental left basilar opacities again noted. Slightly improved aeration from comparison. Right lung is clear. Cardiomediastinal and hilar silhouettes are within normal limits. No pneumothorax. Bones of the chest appear grossly intact. IMPRESSION: 1. Mildly improved aeration of the left lung base with persistent mild left hemidiaphragmatic elevation with trace left pleural effusion and subsegmental left basilar opacities suggesting atelectasis or scarring. 2. No pneumothorax. The above report was generated using voice recognition software. It may contain grammatical, syntax or spelling errors. Electronically signed by: Hector Nunez M.D. 10/30/2017 10:06 AM Dictated Date/Time: 10/30/2017 10:04 AM
== END | disposition home or self-care (01) ==
LOC: C.RAD1850 09:53
PROVIDERS: ATTEND Surgery
DX: J90 Pleural effusion, not elsewhere classified (principal); J86.9 Pyothorax without fistula